=== PATIENT | female | born 1980 | race Caucasian/White ===

== ENCOUNTER 2016-12-04 14:17 | Emergency (ER) | payer OTHER ==
[2016-12-04] MEDS ORDERED: SODIUM CHLORIDE 0.9% 1,000 ML IV ONE (14:24)
[2016-12-04] MEDS ORDERED: KETOROLAC 60 MG/2 ML VIAL IVP STA (17:58)
[2016-12-04] MEDS ORDERED: ONDANSETRON 4 MG/2 ML VIAL IVP STA (17:58)
[2016-12-04] MEDS ORDERED: PROMETHAZINE INJ 12.5 MG in SODIUM CHLORIDE 0.9% 50 ML IV STA (18:02)
[2016-12-04] MEDS ORDERED: AZITHROMYCIN 250 MG TABLET PO STA (18:04)
[2016-12-04] MEDS ORDERED: KETOROLAC 30 MG/ML VIAL ONE (18:10)
[2016-12-04] MEDS ORDERED: PROMETHAZINE 25 MG/1 ML VIAL ONE (18:11)
[2016-12-04] MEDS ORDERED: AZITHROMYCIN 250 MG TABLET PO ONE (18:11)
== END 2016-12-04 18:57 | disposition home or self-care (01) ==
DX: A04.9 Bacterial intestinal infection, unspecified (principal); J45.909 Unspecified asthma, uncomplicated; M79.7 Fibromyalgia; K58.9 Irritable bowel syndrome, unspecified
CPT/HCPCS: 36415; 80053; 82270; 83630; 83690; 84703; 85025; 87045; 87046; 87493; 96361; 96365; 96375; 99283; 99284; A9270

== ENCOUNTER 2017-04-22 06:26 | Emergency (ER) | payer OTHER ==
[2017-04-22] MEDS ORDERED: KETOROLAC 60 MG/2 ML VIAL IVP STA (07:16)
[2017-04-22] MEDS ORDERED: ONDANSETRON 4 MG/2 ML VIAL IVP STA (07:16)
[2017-04-22] MEDS ORDERED: ONDANSETRON 4 MG/2 ML VIAL ONE (07:19)
[2017-04-22] MEDS ORDERED: KETOROLAC 30 MG/ML VIAL ONE (07:19)
--- NOTE | 2017-04-22 07:21 | ED Physician Documentation ---
PD HPI ABD PAIN - Stated complaint Stated Complaint: R FLANK PX - Chief complaint Chief Complaint: Abd Pain - History obtained from History obtained from: Patient - History of Present Illness Timing - onset: Enter time (1400), Yesterday Timing - duration: Days (1) Timing - details: Abrupt onset, Still present Quality: Sharp Location: RLQ Radiation: Right flank Improved by: Other (nothing) Worsened by: Eating, Palpation Associated symptoms: Nausea, Vomiting. No: Fever, Diarrhea, Constipation Similar symptoms before: Has not had sx before Recently seen: Not recently seen - Additional information Additional information: 36 y/o female with a history of IBS, fibromyalgia and asthma has developed right flank pain with radiation to the right lower quadrant that has spikes of pain that are intolerable. She vomited once and at first thought this was her IBS but she has never had her IBS be this bad. Review of Systems Constitutional: reports: Fever Eyes: denies: Decreased vision Ears: denies: Ear pain Nose: denies: Congestion Throat: denies: Sore throat Cardiac: denies: Chest pain / pressure, Palpitations Respiratory: denies: Dyspnea, Cough GI: reports: Abdominal Pain, Nausea, Vomiting. denies: Constipation, Diarrhea : denies: Dysuria, Frequency Skin: denies: Rash Musculoskeletal: reports: Back pain. 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 - Present Medications Home Medications: Ambulatory Orders Medication Instructions Recorded Confirmed Cholecalciferol (Vitamin D3) 2,000 unit DAILY 12/04/16 04/22/17 [Vitamin D3] Cyclobenzaprine HCl 30 mg QPM 12/04/16 04/22/17 Esomeprazole Magnesium [Nexium] 20 mg DAILY 12/04/16 04/22/17 Etodolac [Lodine] 400 mg BID 12/04/16 04/22/17 Loratadine [Claritin] 10 mg DAILY 12/04/16 04/22/17 Magnesium 500 mg ORAL DAILY 12/04/16 04/22/17 Milnacipran HCl [Savella] 50 mg BID 12/04/16 04/22/17 Ondansetron HCl [Zofran] 8 mg ORAL .FREQ PRN 12/04/16 04/22/17 Sumatriptan Succinate 100 mg ORAL .FREQ PRN 12/04/16 04/22/17 Topiramate 25 mg ORAL BID 12/04/16 04/22/17 buPROPion [Wellbutrin Sr] 300 mg ORAL DAILY 12/04/16 04/22/17 cloNIDine [Catapres] 0.2 mg ORAL QPM 12/04/16 04/22/17 - Allergies Allergies/Adverse Reactions: Allergies Allergy/AdvReac Type Severity Reaction Status Date / Time Penicillins Allergy Hives Verified 04/22/17 06:32 - Social History Does the pt smoke?: No Smoking Status: Never smoker Does the pt drink ETOH?: No Does the pt have substance abuse?: No - Immunizations Immunizations are current?: Yes - POLST Patient has POLST: No PD ED PE NORMAL - Vitals Vital signs reviewed: Yes (tachy and hypertensive ) - General General: Alert and oriented X 3, Well developed/nourished, Other (The patient appears to be in 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 ) - HEENT HEENT: Atraumatic, PERRL, EOMI - Neck Neck: Supple, no meningeal sign - Cardiac Cardiac: RRR, No murmur - Respiratory Respiratory: No respiratory distress, Clear bilaterally - Abdomen Abdomen: Soft, Other (mild general tenderness to the right side without garding or rebound tenderness. ) - Back Back: No CVA TTP, No spinal TTP - Derm Derm: Normal color, No rash - Extremities Extremities: No deformity, No edema - Neuro Neuro: No motor deficit, No sensory deficit, Normal speech - Psych Psych: Normal mood Results - Vitals Vitals: Vital Signs - 24 hr 04/22/17 04/22/17 04/22/17 06:30 07:32 08:18 Temperature 36.2 C L Heart Rate 116 H 83 Respiratory 16 17 16 Rate Blood Pressure 132/94 H 125/92 H O2 Saturation 98 100 04/22/17 10:40 Temperature Heart Rate 71 Respiratory 12 Rate Blood Pressure 132/95 H O2 Saturation 100 Oxygen O2 Source Room air - Labs Labs: Laboratory Tests 04/22/17 04/22/17 04/22/17 07:20 07:25 07:25 WBC 4.7 L RBC 5.14 Hgb 15.0 Hct 44.8 MCV 87.1 MCH 29.1 MCHC 33.4 RDW 13.4 Plt Count 311 MPV 6.8 L Neut # 2.6 Lymph # 1.4 L Tensas # 0.5 Eos # 0.2 Baso # 0.1 Absolute Nucleated RBC 0.00 Nucleated RBCs 0.0 Sodium 138 Potassium 3.9 Chloride 105 Carbon Dioxide 25 Anion Gap 8.0 BUN 20 Creatinine 0.9 Estimated GFR (MDRD) 72 L Glucose 97 Calcium 9.2 Total Bilirubin 0.9 AST 24 ALT 24 Alkaline Phosphatase 66 Total Protein 7.5 Albumin 4.3 Globulin 3.2 Albumin/Globulin Ratio 1.3 Lipase 27 Urine Color YELLOW Urine Clarity CLEAR Urine pH 8.0 H Ur Specific [place] 1.010 Urine Protein NEGATIVE Urine Glucose (UA) NEGATIVE Urine Ketones NEGATIVE Urine Occult Blood MODERATE H Urine Nitrite NEGATIVE Urine Bilirubin NEGATIVE Urine Urobilinogen 0.2 (NORMAL) Ur Leukocyte Esterase NEGATIVE Urine RBC 0-5 Urine WBC 0-3 Ur Squamous Epith Cells FEW Squamous Urine Bacteria Few Ur Microscopic Review INDICATED Urine Culture Comments NOT INDICATED Urine HCG, Qual NEGATIVE - Rads (name of study) CT ab/pel without Radiology: Prelim report reviewed (Impression: 1. No evidence of urinary tract stones or obstruction.2. Etiology of right flank pain not identified.), EMP read indepedently, See rad report Procedures - Bedside sono Bedside sono by EMP: with the use of bedside ultrasound the right kidney is imaged and it is sonographically non-tender and there is questionable hydro. PD MEDICAL DECISION MAKING - ED course Complexity details: reviewed results, re-evaluated patient, considered differential, d/w patient ED course: 36 y/o female with right flank pain has a history consistent with a kidney stone and an IV is begun and she is given IV toradal and zofran and a CT is ordered. She has some relief with the toradal but the scan shows no stone. The gallbladder is imaged with ultrasound and that is without findings as well. 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 Narcotics are avoided and I have recommended she take some MOM. Departure - Departure Disposition: 01 Home, Self Care Clinical Impression: Constipation Qualifiers: Constipation type: slow transit constipation Qualified Code(s): K59.01 - Slow transit constipation Condition: Stable Instructions: ED Constipation Follow-Up: Deo Ayoub DO [Primary Care Provider] - Discharge Date/Time: 04/22/17 10:48
[2017-04-22 07:36] LABS: BASOPHILS # (AUTO) 0.1 10^3/uL (0.0-0.1); BASOPHILS % (AUTO) 1.1 %; EOSINOPHILS # (AUTO) 0.2 10^3/uL (0.0-0.7); EOSINOPHILS % (AUTO) 3.3 %; HCT - HEMATOCRIT 44.8 % (37.0-47.0); LYMPHOCYTES # (AUTO) 1.4 10^3/uL (1.5-3.5); LYMPHOCYTES % (AUTO) 29.8 %; MEAN CORPUSCULAR HEMOGLOBIN 29.1 pg (27.0-31.0); MEAN CORPUSCULAR HGB CONC 33.4 g/dL (32.0-36.0); MEAN CORPUSCULAR VOLUME 87.1 fL (81.0-99.0); MEAN PLATELET VOLUME 6.8 fL (7.9-10.8); MONOCYTES # (AUTO) 0.5 10^3/uL (0.0-1.0); MONOCYTES % (AUTO) 10.2 %; NEUTROPHILS # (AUTO) 2.6 10^3/uL (1.5-6.6); NEUTROPHILS % (AUTO) 55.6 %; RED BLOOD COUNT 5.14 10^6/uL (4.20-5.40); RED CELL DISTRIBUTION WIDTH 13.4 % (12.0-15.0); UNCORRECTED WHITE BLOOD COUNT 4.7 x10^3/uL; WHITE BLOOD COUNT 4.7 x10^3/uL (4.8-10.8)
[2017-04-22 07:43] LABS: BILIRUBIN,URINE NEGATIVE (NEGATIVE); HCG UR QUAL NEGATIVE; UA w/ MICROSCOPIC CHARGE YES
[2017-04-22 07:45] LABS: UR CULTURE IF IND NOT INDICATED; WBC,URINE 0-3 /HPF (0-5)
[2017-04-22 07:49] LABS: ALBUMIN/GLOBULIN RATIO 1.3 (1.0-2.2); BILIRUBIN,TOTAL 0.9 mg/dL (0.2-1.0); CALCIUM 9.2 mg/dL (8.5-10.3); CREATININE 0.9 mg/dL (0.4-1.0); POTASSIUM 3.9 mmol/L (3.5-5.0); TOTAL PROTEIN 7.5 g/dL (6.7-8.2)
--- NOTE | 2017-04-22 08:41 | CT Preliminary Report ---
Exam: CT Abdomen/Pelvis W/O IMPRESSION: 1. No evidence of urinary tract stones or obstruction. 2. Etiology for right flank pain not identified. [facility] SITE ID: [id number]
--- NOTE | 2017-04-22 08:44 | CT Report ---
EXAM: CT ABDOMEN AND PELVIS (CT KUB) EXAM DATE: 04/22/2017 08:07 AM. CLINICAL HISTORY: R flank pain . COMPARISONS: None. TECHNIQUE: Routine axial helical CT imaging was performed through the abdomen and pelvis without IV c ontrast. Reconstructions: Coronal and sagittal. In accordance with CT protocol optimization, one or more of the following dose reduction techniques w ere utilized for this exam: automated exposure control, adjustment of mA and/or KV based on patient s ize, or use of iterative reconstructive technique. FINDINGS: Lung Bases: Unremarkable. Right Kidney/Ureter: No stones, hydronephrosis, or hydroureter. No perinephric fat stranding. Left Kidney/Ureter: No stones, hydronephrosis, or hydroureter. No perinephric fat stranding. Other Solid Organs: Noncontrast images of the solid organs are grossly unremarkable. Gallbladder/Bile Ducts: Unremarkable. Peritoneal Cavity: No free fluid, free air or zac adenopathy. Bowel is grossly unremarkable. Pelvic Organs: No bladder stones. No free fluid. Surgical clips adjacent to the left adnexa may repre sent tubal ligation clips. No clips are seen in the region of the right adnexa. Vasculature: Unremarkable. Other: None. IMPRESSION: 1. No evidence of urinary tract stones or obstruction. 2. Etiology for right flank pain not identified. [facility] Referring Provider Line: [phone] SITE ID: [id number]
--- NOTE | 2017-04-22 10:09 | Ultrasound Preliminary Report ---
Exam: US Abdomen Limited IMPRESSION: 1. Normal ultrasound appearance of the gallbladder and bile ducts. 2. Normal appearance of right kidney without hydronephrosis. [facility] SITE ID: [id number]
--- NOTE | 2017-04-22 10:12 | Ultrasound Report ---
EXAM: ABDOMEN ULTRASOUND LIMITED, RUQ EXAM DATE: 04/22/2017 09:47 AM. CLINICAL HISTORY: RUQ pain . COMPARISON: CT 04/22/2017. TECHNIQUE: Real-time scanning was performed with static images obtained. FINDINGS: Liver: Heterogenous echotexture. Evaluation limited by body habitus. No focal hepatic lesion. 14.4 cm . Main portal vein flow: Hepatopetal. Gallbladder: Normal. No stones, wall thickening, or sonographic Marie's sign. Biliary System: CBD measures 5.5 mm. Right kidney measures 11.2 cm in length without hydronephrosis. No shadowing renal stones. Other: None. IMPRESSION: 1. Normal ultrasound appearance of the gallbladder and bile ducts. 2. Normal appearance of right kidney without hydronephrosis. [facility] Referring Provider Line: [phone] SITE ID: [id number]
[2017-04-22 10:40] VITALS: BP 132/95
== END 2017-04-22 10:48 | disposition home or self-care (01) ==
LOC: ED 06:26
DX: K59.01 Slow transit constipation (principal); K58.9 Irritable bowel syndrome, unspecified; M79.7 Fibromyalgia; J45.909 Unspecified asthma, uncomplicated
CPT/HCPCS: 36415; 74176; 76705; 80053; 81001; 81003; 81025; 83690; 85025; 87086; 96374; 96375; 99284

== ENCOUNTER 2017-09-10 11:17 | Emergency (ER) | payer OTHER ==
--- NOTE | 2017-09-10 11:38 | ED Physician Documentation ---
PD HPI HEADACHE - Stated complaint Stated Complaint: MIGRAINE,BLURRY VISION, PRESSURE L EYE - Chief complaint Chief Complaint: Neuro - History obtained from History obtained from: Patient - History of Present Illness Timing - onset: How many days ago (3) Timing - onset during: Light activity Timing - duration: Days (3) Timing - details: Gradual onset, Still present Worst headache ever?: No: Worst headache ever? Location: Front, Left Quality: Throbbing, Aching Associated symptoms: Nausea, Vomiting, Eye pain, Vision changes (some blurriness left eye today). No: Fever, Stiff neck, Weakness, Numbness Improved by: Rest, Dark room, Meds (some improved with Imitrex for short time, then back again, despite repeat doses as Rx.) Worsened by: Light, Noise Contributing factors: No: Hypertension, Recent illness, Trauma Similar symptoms before: Diagnosis (migraines regularly, usually controlled with Botox and Topomax, and relieved with Imitrex and Zofran most of the time. Last Botox was July and gets them every 3 months.) Recently seen: Not recently seen Review of Systems Constitutional: denies: Fever, Chills Eyes: reports: Decreased vision (blurry left eye, side of headache), Photophobia Nose: denies: Rhinorrhea / runny nose, Congestion Throat: denies: Sore throat Respiratory: denies: Cough GI: reports: Nausea, Vomiting. 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 - Present Medications Home Medications: Ambulatory Orders Medication Instructions Recorded Confirmed Cholecalciferol (Vitamin D3) 2,000 unit DAILY 12/04/16 04/22/17 [Vitamin D3] Etodolac [Lodine] 400 mg ORAL BID 12/04/16 09/10/17 Loratadine [Claritin] 10 mg ORAL DAILY 12/04/16 09/10/17 Magnesium 500 mg ORAL DAILY 12/04/16 09/10/17 Milnacipran HCl [Savella] 50 mg ORAL BID 12/04/16 09/10/17 Ondansetron HCl [Zofran] 8 mg ORAL .FREQ PRN 12/04/16 09/10/17 SUMAtriptan succinate [Sumatriptan 100 mg ORAL .FREQ PRN 12/04/16 09/10/17 Succinate] Topiramate 25 mg ORAL BID 12/04/16 09/10/17 buPROPion [Wellbutrin Sr] 300 mg ORAL DAILY 12/04/16 09/10/17 Dexamethasone [Decadron] 4 mg PO DAILY #5 tablet 09/10/17 Guanfacine HCl 1 mg PO DAILY 09/10/17 09/10/17 HYDROcod/ACETAM 5/325 [[place] 5/325] 1 tab PO Q6H PRN #15 tablet 09/10/17 Methylphenidate HCl 54 mg PO DAILY 09/10/17 09/10/17 [Methylphenidate ER] Minocycline HCl 100 mg PO DAILY 09/10/17 09/10/17 Omeprazole 20 mg PO DAILY 09/10/17 09/10/17 Promethazine [Phenergan] 25 - 50 mg PO Q6H PRN #30 tab 09/10/17 - Allergies Allergies/Adverse Reactions: Allergies Allergy/AdvReac Type Severity Reaction Status Date / Time Penicillins Allergy Hives Verified 04/22/17 06:32 - Social History Does the pt smoke?: No Smoking Status: Never smoker Does the pt drink ETOH?: Yes Does the pt have substance abuse?: No - Immunizations Immunizations are current?: Yes - POLST Patient has POLST: No PD ED PE NORMAL - Vitals Vital signs reviewed: Yes - General General: Alert and oriented X 3, Well developed/nourished, Other (uncomfortable and sensitive to light and noise. ) - HEENT HEENT: PERRL (light sensitive), EOMI, Pharynx benign - Neck Neck: Supple, no meningeal sign, No adenopathy - Cardiac Cardiac: RRR, No murmur - Respiratory Respiratory: Clear bilaterally - Abdomen Abdomen: Soft, Non tender - Derm Derm: Normal color, Warm and dry - Extremities Extremities: No deformity, No tenderness to palpate, No edema, No calf tenderness / cord - Neuro Neuro: Alert and oriented X 3, model maker scale 2-12 intact, No motor deficit, No sensory deficit, Normal speech Results - Vitals Vitals: Vital Signs - 24 hr 09/10/17 09/10/17 09/10/17 11:21 12:40 12:51 Temperature 36.1 C L 36.4 C L Heart Rate 86 89 Respiratory 18 16 Rate Blood Pressure 134/97 H 126/87 H O2 Saturation 100 100 09/10/17 09/10/17 13:58 14:46 Temperature 35.5 C L Heart Rate 86 Respiratory 16 Rate Blood Pressure 121/82 H O2 Saturation 100 Oxygen O2 Source Room air PD MEDICAL DECISION MAKING - ED course Complexity details: re-evaluated patient (improved enough after IV meds mainly antimigraine but also some pain meds. Given steroids for status migraine. ), considered differential, d/w patient Departure - Departure Disposition: 01 Home, Self Care Clinical Impression: Migraine Qualifiers: Migraine type: with aura Status migrainosus presence: with status migrainosus Intractability: not intractable Qualified Code(s): G43.101 - Migraine with aura , not intractable, with status migrainosus Condition: Stable Record reviewed to determine appropriate education?: Yes Instructions: ED Headache Migraine Follow-Up: JAYDEN WALLIS [Primary Care Provider] - Prescriptions: Dexamethasone [Decadron] 4 mg PO DAILY #5 tablet HYDROcod/ACETAM 5/325 [[place] 5/325] 1 tab PO Q6H PRN #15 tablet PRN Reason: Pain Promethazine [Phenergan] 25 - 50 mg PO Q6H PRN #30 tab PRN Reason: Nausea / Vomiting Comments: Continue usual medications. Drink lots of fluids. Rest today. If you have persisting headache later in into tomorrow, then continue Decadron steroid daily for several more days. At promethazine for nausea as needed and this can also help improve migraine. This could be used in combination with your Imitrex for subsequent migraines as well. Add Tylenol or hydrocodone if needed for residual headache. Recheck if not completely resolved over 1-2 days. Return sooner or check with your neurologist if worsening again. Discharge Date/Time: 09/10/17 14:50
[2017-09-10] MEDS ORDERED: KETOROLAC 30 MG/ML VIAL IVP STA (12:13)
[2017-09-10] MEDS ORDERED: DEXAMETHASONE 10 MG/ML VIAL IVP STA (12:13)
[2017-09-10] MEDS ORDERED: SODIUM CHLORIDE 0.9% 1,000 ML IV ONE (12:13)
[2017-09-10] MEDS ORDERED: METOCLOPRAMIDE 10 MG/2 ML VIAL IVP STA (12:13)
[2017-09-10] MEDS ORDERED: diphenhydrAMINE INJ 50 MG/ML VIAL IVP STA (12:13)
[2017-09-10] MEDS ORDERED: HYDROmorphone 1 MG/ML SYRINGE IVP STA ×2 (12:13→13:31)
[2017-09-10] MEDS ORDERED: METOCLOPRAMIDE 10 MG/2 ML VIAL ONE (12:31)
[2017-09-10] MEDS ORDERED: KETOROLAC 30 MG/ML VIAL ONE (12:32)
[2017-09-10] MEDS ORDERED: HYDROmorphone 1 MG/ML SYRINGE ONE ×2 (12:32→13:45)
[2017-09-10] MEDS ORDERED: DEXAMETHASONE 10 MG/ML VIAL ONE (12:32)
[2017-09-10] MEDS ORDERED: diphenhydrAMINE INJ 50 MG/ML VIAL ONE (12:32)
[2017-09-10 13:58] VITALS: BP 121/82
== END 2017-09-10 14:50 | disposition home or self-care (01) ==
LOC: ED 11:17
DX: G43.101 Migraine with aura, not intractable, with status migrainosus (principal)
CPT/HCPCS: 96361; 96374; 96375; 96376; 99284; J1170

== ENCOUNTER 2018-01-10 21:57 | Emergency (ER) | payer OTHER ==
--- NOTE | 2018-01-10 22:26 | ED Physician Documentation ---
History of Present Illness - Stated complaint Stated Complaint: SORE THROAT - Chief complaint Chief Complaint: Heent - History obtained from History obtained from: Patient - History of Present Illness Timing: Other (1 day of scratchy sore throat with mild cough) Review of Systems Constitutional: denies: Fever, Chills Ears: denies: Ear pain Nose: denies: Rhinorrhea / runny nose, Congestion Throat: reports: Sore throat Respiratory: reports: Cough PD PAST MEDICAL HISTORY - Past Medical History Respiratory: Asthma Neuro: Headache/migraine Psych: ADD/ADHD Musculoskeletal: Fibromyalgia - Past Surgical History 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, 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 - Present Medications Home Medications: Ambulatory Orders Medication Instructions Recorded Confirmed Cholecalciferol (Vitamin D3) 2,000 unit DAILY 12/04/16 04/22/17 [Vitamin D3] Etodolac [Lodine] 400 mg ORAL BID 12/04/16 09/10/17 Loratadine [Claritin] 10 mg ORAL DAILY 12/04/16 09/10/17 Magnesium 500 mg ORAL DAILY 12/04/16 09/10/17 Milnacipran HCl [Savella] 50 mg ORAL BID 12/04/16 09/10/17 Ondansetron HCl [Zofran] 8 mg ORAL .FREQ PRN 12/04/16 09/10/17 SUMAtriptan succinate [Sumatriptan 100 mg ORAL .FREQ PRN 12/04/16 09/10/17 Succinate] Topiramate 25 mg ORAL BID 12/04/16 09/10/17 buPROPion [Wellbutrin Sr] 300 mg ORAL DAILY 12/04/16 09/10/17 Dexamethasone [Decadron] 4 mg PO DAILY #5 tablet 09/10/17 Guanfacine HCl 1 mg PO DAILY 09/10/17 09/10/17 HYDROcod/ACETAM 5/325 [[place] 5/325] 1 tab PO Q6H PRN #15 tablet 09/10/17 Methylphenidate HCl 54 mg PO DAILY 09/10/17 09/10/17 [Methylphenidate ER] Minocycline HCl 100 mg PO DAILY 09/10/17 09/10/17 Omeprazole 20 mg PO DAILY 09/10/17 09/10/17 Promethazine [Phenergan] 25 - 50 mg PO Q6H PRN #30 tab 09/10/17 - Allergies Allergies/Adverse Reactions: Allergies Allergy/AdvReac Type Severity Reaction Status Date / Time Penicillins Allergy Hives Verified 01/10/18 22:06 - Social History Does the pt smoke?: No Smoking Status: Never smoker Does the pt drink ETOH?: Yes Does the pt have substance abuse?: No - Immunizations Immunizations are current?: Yes - POLST Patient has POLST: No PD ED PE NORMAL - Vitals Vital signs reviewed: Yes - General General: Alert and oriented X 3, No acute distress - HEENT HEENT: PERRL, EOMI, Ears normal, Moist mucous membranes, Pharynx benign - Neck Neck: Supple, no meningeal sign, No bony TTP - Neuro Neuro: Alert and oriented X 3, Normal speech Results - Vitals Vitals: Vital Signs - 24 hr 01/10/18 01/10/18 22:00 22:26 Temperature 36.9 C Heart Rate 133 H 133 H Respiratory 18 Rate Blood Pressure 143/103 H 134/95 H O2 Saturation 98 Oxygen O2 Source Room air - EKG (time done) 2235 Rate: Rate (enter#) (123) Rhythm: Sinus tachycardia [place]: Normal Intervals: Normal [place] QRS: Normal Ischemia: Normal ST segments Computer interpretation: Agree with computer - Labs Labs: Laboratory Tests 01/10/18 22:05 Group A Strep Rapid Negative PD MEDICAL DECISION MAKING - ED course ED course: 37-year-old woman with what seems like uncomplicated viral pharyngitis clinically. She is fairly tachycardic, could be explained by polypharmacy. She does not look ill and she is not hypotensive.. EKG shows simple sinus tachycardia. Departure - Departure Disposition: 01 Home, Self Care Clinical Impression: Sore throat Condition: Good Record reviewed to determine appropriate education?: Yes Instructions: ED Pharyngitis Viral Report Pending Comments: We will do a throat culture, if it comes positive for bacterial pathogen we will call you in a couple of days. Ibuprofen as needed for the pain and drink plenty of fluids.
[2018-01-10 22:49] VITALS: BP 140/94
== END 2018-01-10 22:50 | disposition home or self-care (01) ==
LOC: ED 21:57
DX: J02.9 Acute pharyngitis, unspecified (principal); J45.909 Unspecified asthma, uncomplicated; M79.7 Fibromyalgia; R00.0 Tachycardia, unspecified
CPT/HCPCS: 87070; 87430; 93005; 99283

== ENCOUNTER 2018-01-11 14:13 | Emergency (ER) | payer OTHER ==
[2018-01-11 14:21] VITALS: BP 134/89
[2018-01-11] MEDS ORDERED: SODIUM CHLORIDE 0.9% 1,000 ML IV ONE (14:49)
--- NOTE | 2018-01-11 14:51 | ED Physician Documentation ---
PD HPI CHEST PAIN - Stated complaint Stated Complaint: CHEST PAIN, HIGH PULSE - Chief complaint Chief Complaint: Cardiac - History obtained from History obtained from: Patient - History of Present Illness Timing - onset: Other (She was seen yesterday for sore throat, strep was negative, she was noted to be tachycardic and I asked her to watch this at home and call me today to see what her heart rate was. She has had variability, but she still running high the lowest was 108. Now she has a cough which is Nonproductive and a tactile fever and generally feels worse than yesterday. She does have chest pain but it is really only with coughing.) - Additional information Additional information: She did not take her Ritalin today. Review of Systems Constitutional: reports: Fever, Chills, Fatigue Nose: denies: Rhinorrhea / runny nose Throat: reports: Sore throat Cardiac: reports: Chest pain / pressure. denies: Palpitations Respiratory: reports: Cough. 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 - Present Medications Home Medications: Ambulatory Orders Medication Instructions Recorded Confirmed Cholecalciferol (Vitamin D3) 2,000 unit DAILY 12/04/16 04/22/17 [Vitamin D3] Etodolac [Lodine] 400 mg ORAL BID 12/04/16 09/10/17 Loratadine [Claritin] 10 mg ORAL DAILY 12/04/16 09/10/17 Magnesium 500 mg ORAL DAILY 12/04/16 09/10/17 Milnacipran HCl [Savella] 50 mg ORAL BID 12/04/16 09/10/17 Ondansetron HCl [Zofran] 8 mg ORAL .FREQ PRN 12/04/16 09/10/17 SUMAtriptan succinate [Sumatriptan 100 mg ORAL .FREQ PRN 12/04/16 09/10/17 Succinate] Topiramate 25 mg ORAL BID 12/04/16 09/10/17 buPROPion [Wellbutrin Sr] 300 mg ORAL DAILY 12/04/16 09/10/17 Dexamethasone [Decadron] 4 mg PO DAILY #5 tablet 09/10/17 Guanfacine HCl 1 mg PO DAILY 09/10/17 09/10/17 HYDROcod/ACETAM 5/325 [[place] 5/325] 1 tab PO Q6H PRN #15 tablet 09/10/17 Methylphenidate HCl 54 mg PO DAILY 09/10/17 09/10/17 [Methylphenidate ER] Minocycline HCl 100 mg PO DAILY 09/10/17 09/10/17 Omeprazole 20 mg PO DAILY 09/10/17 09/10/17 Promethazine [Phenergan] 25 - 50 mg PO Q6H PRN #30 tab 09/10/17 - Allergies Allergies/Adverse Reactions: Allergies Allergy/AdvReac Type Severity Reaction Status Date / Time Penicillins Allergy Hives Verified 01/10/18 22:06 - Social History Does the pt smoke?: No Smoking Status: Never smoker Does the pt drink ETOH?: Yes Does the pt have substance abuse?: No - Immunizations Immunizations are current?: Yes - POLST Patient has POLST: No PD ED PE NORMAL - Vitals Vital signs reviewed: Yes - General General: Alert and oriented X 3, No acute distress - HEENT HEENT: PERRL, EOMI, Other (Red tonsillar pillars) - Neck Neck: Supple, no meningeal sign, No bony TTP - Cardiac Cardiac: RRR, No murmur - Respiratory Respiratory: No respiratory distress, Clear bilaterally - Abdomen Abdomen: Normal bowel sounds, Soft, Non tender - Back Back: No CVA TTP, No spinal TTP - Derm Derm: Normal color, Warm and dry - Extremities Extremities: No edema, No calf tenderness / cord - Neuro Neuro: Alert and oriented X 3, Normal speech - Psych Psych: Normal mood, Normal affect Results - Vitals Vitals: Vital Signs - 24 hr 01/11/18 01/11/18 14:17 17:20 Temperature 36.4 C L Heart Rate 124 H 110 H Respiratory 18 16 Rate Blood Pressure 134/89 H O2 Saturation 99 98 Oxygen O2 Source Room air - EKG (time done) 1418 Rate: Rate (enter#) (112) Rhythm: Sinus tachycardia [place]: Normal Intervals: Normal [place] QRS: Normal Ischemia: Normal ST segments Computer interpretation: Agree with computer - Labs Labs: Laboratory Tests 01/11/18 01/11/18 01/11/18 15:05 15:05 15:05 WBC 8.5 RBC 5.01 Hgb 15.0 Hct 44.6 MCV 89.0 MCH 30.0 MCHC 33.7 RDW 12.2 Plt Count 267 MPV 7.1 L Neut # 6.8 H Lymph # 0.8 L [place] # 0.9 Eos # 0.0 Baso # 0.0 Absolute Nucleated RBC 0.00 Nucleated RBC % 0.0 D-Dimer Sodium 136 Potassium 3.6 Chloride 104 Carbon Dioxide 26 Anion Gap 6.0 BUN 14 Creatinine 0.8 Estimated GFR (MDRD) 82 L Glucose 112 H Lactic Acid Calcium 8.8 Total Bilirubin 0.6 AST 28 ALT 35 Alkaline Phosphatase 64 Troponin I < 0.04 Total Protein 7.1 Albumin 4.2 Globulin 2.9 Albumin/Globulin Ratio 1.4 Lipase 14 L Urine Color Urine Clarity Urine pH Ur Specific [place] Urine Protein Urine Glucose (UA) Urine Ketones Urine Occult Blood Urine Nitrite Urine Bilirubin Urine Urobilinogen Ur Leukocyte Esterase Ur Microscopic Review Urine Culture Comments Urine HCG, Qual Infectious [place] Assay Influenza A (Rapid) Influenza B (Rapid) Influenza Types A,B Ag 01/11/18 01/11/18 01/11/18 15:05 15:05 15:05 WBC RBC Hgb Hct MCV MCH MCHC RDW Plt Count MPV Neut # Lymph # [place] # Eos # Baso # Absolute Nucleated RBC Nucleated RBC % D-Dimer < 200.0 L Sodium Potassium Chloride Carbon Dioxide Anion Gap BUN Creatinine Estimated GFR (MDRD) Glucose Lactic Acid 1.2 Calcium Total Bilirubin AST ALT Alkaline Phosphatase Troponin I Total Protein Albumin Globulin Albumin/Globulin Ratio Lipase Urine Color Urine Clarity Urine pH Ur Specific [place] Urine Protein Urine Glucose (UA) Urine Ketones Urine Occult Blood Urine Nitrite Urine Bilirubin Urine Urobilinogen Ur Leukocyte Esterase Ur Microscopic Review Urine Culture Comments Urine HCG, Qual Infectious [place] Assay NEGATIVE Influenza A (Rapid) Influenza B (Rapid) Influenza Types A,B Ag 01/11/18 01/11/18 16:15 16:46 WBC RBC Hgb Hct MCV MCH MCHC RDW Plt Count MPV Neut # Lymph # [place] # Eos # Baso # Absolute Nucleated RBC Nucleated RBC % D-Dimer Sodium Potassium Chloride Carbon Dioxide Anion Gap BUN Creatinine Estimated GFR (MDRD) Glucose Lactic Acid Calcium Total Bilirubin AST ALT Alkaline Phosphatase Troponin I Total Protein Albumin Globulin Albumin/Globulin Ratio Lipase Urine Color YELLOW Urine Clarity CLEAR Urine pH 6.5 Ur Specific [place] 1.010 Urine Protein NEGATIVE Urine Glucose (UA) NEGATIVE Urine Ketones TRACE Urine Occult Blood TRACE-INTA Urine Nitrite NEGATIVE Urine Bilirubin NEGATIVE Urine Urobilinogen 0.2 (NORMAL) Ur Leukocyte Esterase NEGATIVE Ur Microscopic Review NOT INDICATED Urine Culture Comments NOT INDICATED Urine HCG, Qual NEGATIVE Infectious [place] Assay Influenza A (Rapid) Negative Influenza B (Rapid) POSITIVE H Influenza Types A,B Ag + H - Rads (name of study) 2v chest Radiology: EMP read contemporaneously (Normal) PD MEDICAL DECISION MAKING - ED course ED course: 37-year-old woman with viral syndrome presents with persistent tachycardia and returns at my behest for workup for same. After IV fluids her heart rate was in the 90s. The only relevant finding was flu B positivity. She is young and healthy, we discussed Tamiflu but the side effects probably outweigh the unlikely benefit. Departure - Departure Disposition: 01 Home, Self Care Clinical Impression: Sore throat, Influenza B, Sinus tachycardia Condition: Good Record reviewed to determine appropriate education?: Yes Instructions: ED Flu Comments: Drink plenty of fluids, ibuprofen or Tylenol as needed for pain and aches. Take it easy for the next few days, no work for at least a few days. Forms: Activity restrictions Discharge Date/Time: 01/11/18 17:21
[2018-01-11 15:19] LABS: BASOPHILS % (AUTO) 0.4 %; LYMPHOCYTES # (AUTO) 0.8 10^3/uL (1.5-3.5); MEAN CORPUSCULAR HGB CONC 33.7 g/dL (32.0-36.0); MEAN PLATELET VOLUME 7.1 fL (7.9-10.8); MONOCYTES # (AUTO) 0.9 10^3/uL (0.0-1.0); MONOCYTES % (AUTO) 10.8 %; NEUTROPHILS # (AUTO) 6.8 10^3/uL (1.5-6.6); NEUTROPHILS % (AUTO) 79.8 %; PLT - PLATELET COUNT 267 10^3/uL (130-450); RED BLOOD COUNT 5.01 10^6/uL (4.20-5.40); RED CELL DISTRIBUTION WIDTH 12.2 % (12.0-15.0); WHITE BLOOD COUNT 8.5 x10^3/uL (4.8-10.8)
[2018-01-11 15:25] LABS: ALBUMIN 4.2 g/dL (3.2-5.5); ALBUMIN/GLOBULIN RATIO 1.4 (1.0-2.2); BILIRUBIN,TOTAL 0.6 mg/dL (0.2-1.0); CALCIUM 8.8 mg/dL (8.5-10.3); CREATININE 0.8 mg/dL (0.4-1.0); TOTAL PROTEIN 7.1 g/dL (6.7-8.2)
--- NOTE | 2018-01-11 15:30 | XRAY Preliminary Report ---
Exam: XR CHEST 2 VIEW X-RAY IMPRESSION: 1. No consolidation. [facility] SITE ID: [id number]
--- NOTE | 2018-01-11 15:30 | XRAY Report ---
EXAM: CHEST RADIOGRAPHY EXAM DATE: 01/11/2018 03:03 PM. CLINICAL HISTORY: Cough, fever. COMPARISON: None. TECHNIQUE: 2 views. FINDINGS: Lungs/Pleura: No focal opacities evident. No pleural effusion. No pneumothorax. Normal volumes. Mediastinum: Heart and mediastinal contours are unremarkable. Other: None. IMPRESSION: 1. No consolidation. [facility] Referring Provider Line: [phone] SITE ID: [id number]
[2018-01-11 16:50] LABS: BILIRUBIN,URINE NEGATIVE (NEGATIVE); GLUCOSE, URINE (UA) NEGATIVE (NEGATIVE); KETONES,URINE (UA) TRACE mg/dL (NEGATIVE); LEUKOCYTE ESTERASE, URINE NEGATIVE (NEGATIVE); NITRITE,URINE NEGATIVE (NEGATIVE); OCCULT BLOOD,URINE TRACE-INTA (NEGATIVE); PH,URINE 6.5 PH (5.0-7.5); PROTEIN,URINE NEGATIVE (NEGATIVE); UROBILINOGEN,URINE 0.2 (NORMAL) E.U./dL (NORMAL)
[2018-01-11 16:55] LABS: CLARITY,URINE CLEAR (CLEAR); HCG UR QUAL NEGATIVE
== END 2018-01-11 17:21 | disposition home or self-care (01) ==
LOC: ED 14:13
DX: J10.1 Influenza due to other identified influenza virus with other respiratory manifestations (principal); R00.0 Tachycardia, unspecified; J45.909 Unspecified asthma, uncomplicated; M79.7 Fibromyalgia
CPT/HCPCS: 36415; 71046; 80053; 81001; 81003; 81025; 83605; 83690; 84484; 85025; 85379; 86308; 87086; 87275; 87276; 93005; 96360; 99283

== ENCOUNTER 2018-04-26 07:34 | Emergency (ER) | payer OTHER ==
--- NOTE | 2018-04-26 08:23 | ED Physician Documentation ---
PD HPI NECK PAIN - Stated complaint Stated Complaint: R SIDE NECK PX/STIFFNESS - Chief complaint Chief Complaint: General - History obtained from History obtained from: Patient - History of Present Illness Timing - onset: Today Timing - duration: Hours (awoke with right side of neck to scapular area painful and stiff. No injury. No rash. No fevers.) Timing - details: Abrupt onset, Still present Location: Lower, Right Quality: Pain, Spasm Associated symptoms: No: Fever, Weakness, Numbness Improves with: Rest Worsened by: Movement, Twisting, Palpation Contributing factors: No: Lifting, Twisting Similar symptoms before: Has not had sx before Recently seen: Not recently seen Review of Systems Constitutional: denies: Fever, Chills, Myalgias Nose: denies: Rhinorrhea / runny nose, Congestion Throat: denies: Sore throat Respiratory: denies: Cough GI: denies: Nausea, Vomiting, Diarrhea Skin: denies: Rash Neurologic: denies: Focal weakness, Numbness PD PAST MEDICAL HISTORY - Past Medical History Past Medical History: Yes Respiratory: Asthma Psych: ADD/ADHD Musculoskeletal: Fibromyalgia - Past Surgical History 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, 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 - Present Medications Home Medications: Ambulatory Orders Medication Instructions Recorded Confirmed Cholecalciferol (Vitamin D3) 2,000 unit DAILY 12/04/16 04/26/18 [Vitamin D3] Etodolac [Lodine] 400 mg ORAL BID 12/04/16 04/26/18 Loratadine [Claritin] 10 mg ORAL DAILY 12/04/16 04/26/18 Magnesium 500 mg ORAL DAILY 12/04/16 04/26/18 Milnacipran HCl [Savella] 50 mg ORAL BID 12/04/16 04/26/18 Ondansetron HCl [Zofran] 8 mg ORAL .FREQ PRN 12/04/16 04/26/18 SUMAtriptan succinate [Sumatriptan 100 mg ORAL .FREQ PRN 12/04/16 04/26/18 Succinate] Topiramate 25 mg ORAL BID 12/04/16 04/26/18 buPROPion [Wellbutrin Sr] 300 mg ORAL DAILY 12/04/16 04/26/18 Dexamethasone [Decadron] 4 mg PO DAILY #5 tablet 09/10/17 04/26/18 Guanfacine HCl 1 mg PO DAILY 09/10/17 04/26/18 HYDROcod/ACETAM 5/325 [[place] 5/325] 1 tab PO Q6H PRN #15 tablet 09/10/17 Methylphenidate HCl 54 mg PO DAILY 09/10/17 04/26/18 [Methylphenidate ER] Minocycline HCl 100 mg PO DAILY 09/10/17 04/26/18 Omeprazole 20 mg PO DAILY 09/10/17 04/26/18 Promethazine [Phenergan] 25 - 50 mg PO Q6H PRN #30 tab 09/10/17 04/26/18 HYDROcod/ACETAM 5/325 [[place] 5/325] 1 tab PO Q6H PRN #12 tablet 04/26/18 Lisdexamfetamine Dimesylate 10 mg PO DAILY 04/26/18 04/26/18 [Vyvanse] Methocarbamol [Robaxin] 500 mg PO Q6H PRN #25 tablet 04/26/18 - Allergies Allergies/Adverse Reactions: Allergies Allergy/AdvReac Type Severity Reaction Status Date / Time Penicillins Allergy Hives Verified 01/10/18 22:06 - Social History Does the pt smoke?: No Smoking Status: Never smoker Does the pt drink ETOH?: Yes Does the pt have substance abuse?: No - Immunizations Immunizations are current?: Yes - POLST Patient has POLST: No PD ED PE NORMAL - Vitals Vital signs reviewed: Yes - General General: Alert and oriented X 3, Well developed/nourished, Other (holding head stiffly due to neck muscle pain. Seems uncomfortable. ) - Neck Neck: No bony TTP, No adenopathy, Other (right lateral trapezius muscle at lower neck and to suprascapular area is tender with 2 points of most tenderness with muscle spasm in those areas. ) - Cardiac Cardiac: RRR, No murmur - Respiratory Respiratory: Clear bilaterally - Back Back: No spinal TTP - Derm Derm: Normal color, Warm and dry, No rash - Neuro Neuro: Alert and oriented X 3, No motor deficit, No sensory deficit, Normal speech Results - Vitals Vitals: Vital Signs - 24 hr 04/26/18 09:28 Heart Rate 70 Respiratory 14 Rate Blood Pressure 115/88 H O2 Saturation 99 Oxygen O2 Source Room air PD MEDICAL DECISION MAKING - ED course Complexity details: considered differential (seems muscular without red flags. Trigger point injection at mid trapezius are on right with Marcaine did improve moderately. ), d/w patient - Sepsis Event Vital Signs: Vital Signs - 24 hr 04/26/18 09:28 Heart Rate 70 Respiratory 14 Rate Blood Pressure 115/88 H O2 Saturation 99 Oxygen O2 Source Room air Departure - Departure Disposition: 01 Home, Self Care Clinical Impression: Muscle spasms of neck Condition: Stable Record reviewed to determine appropriate education?: Yes Instructions: ED Spasm Neck No Injury Follow-Up: Bob Call ARNP [Primary Care Provider] - Prescriptions: HYDROcod/ACETAM 5/325 [[place] 5/325] 1 tab PO Q6H PRN #12 tablet PRN Reason: Pain Methocarbamol [Robaxin] 500 mg PO Q6H PRN #25 tablet PRN Reason: Spasms Comments: Heat and gentle stretching for the shoulder and neck muscles. No heavy lifting or vigorous activity with the arms or shoulders today and tomorrow. Use the ibuprofen you have at home 3 times a day for the next several days. Add Robaxin muscle relaxant for stiffness and spasms. Add Tylenol or hydrocodone if needed for pains. Recheck if not improved over the next few days. Return if other symptoms develop along with it, such as rash, fever, weakness, etc. Discharge Date/Time: 04/26/18 09:40
[2018-04-26] MEDS ORDERED: ACETAMINOPHEN 325 MG TABLET PO STA (08:33)
[2018-04-26] MEDS ORDERED: oxyCOD/ACETAMIN 5 MG/325 MG TABLET PO STA (08:33)
[2018-04-26] MEDS ORDERED: METHOCARBAMOL 500 MG TABLET PO STA (08:33)
[2018-04-26] MEDS ORDERED: KETOROLAC 30 MG/ML VIAL IM STA (08:34)
[2018-04-26 09:29] VITALS: BP 115/88
== END 2018-04-26 09:40 | disposition home or self-care (01) ==
LOC: ED 07:34
DX: M62.838 Other muscle spasm (principal)
CPT/HCPCS: 96374; 99283; A9270

== ENCOUNTER 2018-06-19 12:53 | Emergency (ER) | payer OTHER ==
[2018-06-19] MEDS ORDERED: MAG HYDROX/AL HYDROX/SIMETH 30 ML UDC PO STA (13:21)
[2018-06-19] MEDS ORDERED: PHENobarb/HYOSCY/ATROPINE/SCOP 5 ML UDC PO STA (13:22)
[2018-06-19] MEDS ORDERED: LIDOCAINE VISCOUS 2% 15 ML UDC MM STA (13:22)
--- NOTE | 2018-06-19 13:25 | ED Physician Documentation ---
PD HPI CHEST PAIN - Stated complaint Stated Complaint: CHEST PX - Chief complaint Chief Complaint: Cardiac - History obtained from History obtained from: Patient - History of Present Illness Timing - onset: How many weeks ago (6) Timing - details: Intermittant Quality: Pain Location: Substernal Worsened by: Inspiration Associated symptoms: Nausea Similar symptoms before: Diagnosis (History of gastroesophageal reflux, but this feels different.) - Additional information Additional information: The patient is a 37-year-old female who presents with substernal chest pain that she has been experiencing intermittently for the past 6 weeks, but it is worse today. It is worse with inspiratory effort. She reports associated nausea and slight shortness of breath, without vomiting or diaphoresis. She is sometimes woken at night with symptoms and with "heart racing, up to 99. She has a history of gastroesophageal reflux, but states this feels different. She has been seen by her primary physician who she states is considering referring her to a sole edge inker machine. She quit smoking cigarettes about 2 years ago. She has no history of hypertension, diabetes, or hyperlipidemia. Her grandmother had early onset coronary artery disease, and had 2 coronary stents placed before the age of 60. Review of Systems Constitutional: denies: Fever Ears: denies: Tinnitus/ringing Nose: denies: Congestion Throat: denies: Sore throat Cardiac: reports: Chest pain / pressure, Palpitations Respiratory: denies: Dyspnea, Cough GI: reports: Nausea. 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 - Present Medications Home Medications: Ambulatory Orders Medication Instructions Recorded Confirmed Cholecalciferol (Vitamin D3) 2,000 unit DAILY 12/04/16 04/26/18 [Vitamin D3] Etodolac [Lodine] 400 mg ORAL BID 12/04/16 04/26/18 Loratadine [Claritin] 10 mg ORAL DAILY 12/04/16 04/26/18 Magnesium 500 mg ORAL DAILY 12/04/16 04/26/18 Milnacipran HCl [[place]] 50 mg ORAL BID 12/04/16 04/26/18 SUMAtriptan succinate [Sumatriptan 100 mg ORAL .FREQ PRN 12/04/16 04/26/18 Succinate] Topiramate 25 mg ORAL BID 12/04/16 04/26/18 buPROPion [Wellbutrin Sr] 300 mg ORAL DAILY 12/04/16 04/26/18 Guanfacine HCl 1 mg PO DAILY 09/10/17 04/26/18 Minocycline HCl 100 mg PO DAILY 09/10/17 04/26/18 Omeprazole 20 mg PO DAILY 09/10/17 04/26/18 Promethazine [Phenergan] 25 - 50 mg PO Q6H PRN #30 tab 09/10/17 04/26/18 Lisdexamfetamine Dimesylate 10 mg PO DAILY 04/26/18 04/26/18 [Vyvanse] Metoprolol Succinate [Toprol Xl] 06/19/18 - Allergies Allergies/Adverse Reactions: Allergies Allergy/AdvReac Type Severity Reaction Status Date / Time Penicillins Allergy Hives Verified 06/19/18 13:02 - Social History Does the pt smoke?: No Smoking Status: Never smoker Does the pt drink ETOH?: Yes Does the pt have substance abuse?: No - Immunizations Immunizations are current?: Yes - POLST Patient has POLST: No PD ED PE NORMAL - Vitals Vital signs reviewed: Yes (Diastolic hypertension initially.) - General General: Alert and oriented X 3, Well developed/nourished - HEENT HEENT: Atraumatic, Pharynx benign - Neck Neck: No adenopathy, No JVD - Cardiac Cardiac: RRR, No murmur - Respiratory Respiratory: No respiratory distress, Clear bilaterally, Other (No chest wall tenderness to palpation.) - Abdomen Abdomen: Soft, Non tender - Back Back: No CVA TTP - Derm Derm: No rash - Extremities Extremities: No edema, No calf tenderness / cord - Neuro Neuro: Alert and oriented X 3, No motor deficit, Normal speech Results - Vitals Vitals: Vital Signs - 24 hr 06/19/18 12:59 Temperature 97.6 C H Heart Rate 74 Respiratory 20 Rate Blood Pressure 118/97 H O2 Saturation 100 Oxygen O2 Source Room air - EKG (time done) 13:03 Rate: Rate (enter#) Rhythm: NSR [place]: Normal Intervals: Normal [place] QRS: Normal Ischemia: Normal ST segments Computer interpretation: Agree with computer - Rads (name of study) CXR Radiology: Prelim report reviewed, EMP read contemporaneously, See rad report ( Normal 2 view chest radiography.) PD MEDICAL DECISION MAKING - ED course Complexity details: reviewed results, re-evaluated patient, considered differential, d/w patient, d/w family ED course: The patient's presentation is most consistent with gastroesophageal reflux. I doubt cardiac ischemia, and electric cardiogram is normal. There is no clinical evidence to suggest pneumonia, pneumothorax, and I doubt pulmonary embolus. Chest x-ray is normal. Treatment in the emergency department included administration of GI cocktail which improved her symptoms although not relieving them completely. Famotidine 20 mg administered orally. I discussed with her and her the diagnosis, symptomatic treatment and outpatient follow-up, as well as potentially worrisome signs or symptoms that should prompt reevaluation in the emergency department. - Sepsis Event Vital Signs: Vital Signs - 24 hr 06/19/18 12:59 Temperature 97.6 C H Heart Rate 74 Respiratory 20 Rate Blood Pressure 118/97 H O2 Saturation 100 Oxygen O2 Source Room air Departure - Departure Disposition: 01 Home, Self Care Clinical Impression: Atypical chest pain Gastroesophageal reflux disease Qualifiers: Esophagitis presence: esophagitis presence not specified Qualified Code(s): K21.9 - Gastro-esophageal reflux disease without esophagitis Condition: Stable Instructions: ED GERD Follow-Up: EMIR LEAL MD [Primary Care Provider] - Comments: Minimize coffee, anthony, alcohol. Continue taking omeprazole daily as previously prescribed. You can drink liquid antacid, such as Maalox or Mylanta, if you develop recurrent symptoms. Follow up with your primary physician within 2 weeks. Call to schedule appointment. Return to the emergency department if you develop increasing chest pain, shortness of breath, or otherwise worsening symptoms.
--- NOTE | 2018-06-19 14:11 | XRAY Report ---
Reason: Substernal chest pain Procedure Date: 06/19/2018 Accession Number: [id number] / [id number] Procedure: XR - Chest 2 View X-Ray CPT Code: 93160 FULL RESULT: EXAM: CHEST RADIOGRAPHY EXAM DATE: 06/19/2018 01:49 PM. CLINICAL HISTORY: Substernal chest pain. COMPARISON: CHEST 2 VIEW 01/11/2018. TECHNIQUE: 2 views. FINDINGS: Lungs/Pleura: No focal opacities evident. No pleural effusion. No pneumothorax. Normal volumes. Mediastinum: Heart and mediastinal contours are unremarkable. Other: None. IMPRESSION: Normal 2-view chest radiography for age and body habitus. No significant change from prior. [facility]
[2018-06-19] MEDS ORDERED: FAMOTIDINE 20 MG/2 ML VIAL IVP STA (14:14)
[2018-06-19] MEDS ORDERED: FAMOTIDINE 20 MG TABLET PO STA (14:42)
[2018-06-19 15:12] VITALS: BP 111/89
== END 2018-06-19 15:11 | disposition home or self-care (01) ==
LOC: ED 12:53
DX: R07.89 Other chest pain (principal); K21.9 Gastro-esophageal reflux disease without esophagitis
CPT/HCPCS: 71046; 93005; 99283; A9270

== ENCOUNTER 2018-08-09 00:05 | Outpatient (CLI) | payer OTHER | END 2018-08-09 00:06 | disposition EMS.NT | LOC: EMS 00:05 | PROVIDERS: ATTEND Surgery | DX: R41.82 Altered mental status, unspecified (principal) ==

== ENCOUNTER 2018-09-03 04:56 | Emergency (ER) | payer OTHER ==
[2018-09-03] MEDS ORDERED: HYDROmorphone 1 MG/ML CARPUJECT IVP STA (05:20)
[2018-09-03] MEDS ORDERED: ONDANSETRON 4 MG/2 ML VIAL IVP STA (05:20)
[2018-09-03] MEDS ORDERED: SODIUM CHLORIDE 0.9% 1,000 ML IV ONE (05:20)
--- NOTE | 2018-09-03 05:27 | ED Physician Documentation ---
PD HPI ABD PAIN - Stated complaint Stated Complaint: ABD PX - Chief complaint Chief Complaint: Abd Pain - History obtained from History obtained from: Patient - History of Present Illness Timing - onset: How many days ago (3) Timing - duration: Days (3) Timing - details: Gradual onset, Still present Quality: Sharp, Pain Location: RUQ Radiation: Right flank Improved by: Laying still Worsened by: Eating, Moving, Breathing, Position, Palpation Associated symptoms: Nausea, Vomiting, Diarrhea Similar symptoms before: Diagnosis (constipation, IBS) Recently seen: Not recently seen - Additional information Additional information: 38-year-old female with history of irritable bowel syndrome has developed right upper quadrant abdominal pain that is been present for 3 days. She states that she has had some nausea and vomiting associated with this and if she eats the pain becomes worse. She states this is different than what she has had previously with constipation. Review of Systems Constitutional: denies: Fever Eyes: denies: Decreased vision Ears: denies: Ear pain Nose: denies: Rhinorrhea / runny nose, Congestion Throat: denies: Sore throat Cardiac: denies: Chest pain / pressure, Palpitations Respiratory: denies: Dyspnea, Cough GI: reports: Abdominal Pain, Nausea, Vomiting, Diarrhea : denies: Dysuria, Frequency Skin: denies: Rash Musculoskeletal: denies: Neck pain, Back pain, Extremity pain Neurologic: denies: Generalized weakness, Focal weakness, Numbness PD PAST MEDICAL HISTORY - Past Medical History Past Medical History: Yes Respiratory: Asthma Endocrine/Autoimmune: None Psych: ADD/ADHD Musculoskeletal: Fibromyalgia - Past Surgical 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, 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 - Present Medications Home Medications: Ambulatory Orders Medication Instructions Recorded Confirmed Cholecalciferol (Vitamin D3) 2,000 unit DAILY 12/04/16 09/03/18 [Vitamin D3] Etodolac [Lodine] 400 mg ORAL BID 12/04/16 09/03/18 Loratadine [Claritin] 10 mg ORAL DAILY 12/04/16 09/03/18 Magnesium 500 mg ORAL DAILY 12/04/16 09/03/18 Milnacipran HCl [Savella] 50 mg ORAL BID 12/04/16 09/03/18 SUMAtriptan succinate [Sumatriptan 100 mg ORAL .FREQ PRN 12/04/16 09/03/18 Succinate] Topiramate 25 mg ORAL BID 12/04/16 09/03/18 buPROPion [Wellbutrin Sr] 300 mg ORAL DAILY 12/04/16 09/03/18 Guanfacine HCl 1 mg PO DAILY 09/10/17 09/03/18 Minocycline HCl 100 mg PO DAILY 09/10/17 09/03/18 Promethazine [Phenergan] 25 - 50 mg PO Q6H PRN #30 tab 09/10/17 09/03/18 Lisdexamfetamine Dimesylate 10 mg PO DAILY 04/26/18 09/03/18 [Vyvanse] Metoprolol Succinate [Toprol Xl] 25 mg PO DAILY 06/19/18 09/03/18 Dicyclomine [Bentyl] 20 mg PO QID PRN #20 capsule 09/03/18 - Allergies Allergies/Adverse Reactions: Allergies Allergy/AdvReac Type Severity Reaction Status Date / Time Penicillins Allergy Hives Verified 09/03/18 05:01 - Social History Does the pt smoke?: No Smoking Status: Never smoker Does the pt drink ETOH?: Yes Does the pt have substance abuse?: No - Immunizations Immunizations are current?: Yes - POLST Patient has POLST: No PD ED PE NORMAL - Vitals Vital signs reviewed: Yes (hypertensive ) - General General: Alert and oriented X 3, Well developed/nourished - HEENT HEENT: Atraumatic, PERRL - Neck Neck: Supple, no meningeal sign, No bony TTP - Cardiac Cardiac: RRR, No murmur - Respiratory Respiratory: No respiratory distress, Clear bilaterally - Abdomen Abdomen: Soft, Other (RUQ tenderness with arrest of inspiration with palpation. 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, No motor deficit, No sensory deficit, Normal speech Eye Opening: Spontaneous Motor: Obeys Commands Verbal: Oriented GCS Score: 15 - Psych Psych: Normal mood, Normal affect Results - Vitals Vitals: Vital Signs - 24 hr 09/03/18 04:58 Temperature 37 C Heart Rate 77 Respiratory 17 Rate Blood Pressure 130/89 H O2 Saturation 100 Oxygen O2 Source Room air - Labs Labs: Laboratory Tests 09/03/18 09/03/18 05:40 05:40 WBC 5.5 RBC 4.55 Hgb 14.3 Hct 41.2 MCV 90.4 MCH 31.5 H MCHC 34.9 RDW 12.5 Plt Count 272 MPV 6.9 L Neut # (Auto) 3.3 Lymph # (Auto) 1.6 Motley # (Auto) 0.5 Eos # (Auto) 0.0 Baso # (Auto) 0.1 Absolute Nucleated RBC 0.00 Nucleated RBC % 0.1 Sodium 139 Potassium 4.0 Chloride 108 Carbon Dioxide 24 Anion Gap 7.0 BUN 19 Creatinine 0.8 Estimated GFR (MDRD) 81 L Glucose 100 Calcium 8.6 Total Bilirubin 0.4 AST 18 ALT 15 Alkaline Phosphatase 54 Total Protein 6.6 L Albumin 3.6 Globulin 3.0 Albumin/Globulin Ratio 1.2 Lipase 38 - Rads (name of study) RUQ U/S Radiology: Prelim report reviewed (Impression: No definite findings to explain clinical symptoms.), EMP read indepedently, See rad report Procedures - Bedside sono Bedside sono by EMP: Use of bedside ultrasound the right kidney is imaged and it is sonographically tender and reproduces some of the pain the patient is experiencing but clearly anterior sonographic probing reveals a different location of the patient's pain. There is no hydro. I am unable to adequately visualize the gallbladder. PD MEDICAL DECISION MAKING - ED course Complexity details: reviewed results, re-evaluated patient, considered differential, d/w patient ED course: 38y/o female with right abdominal pain for 3 days has specific tenderness in the right upper quadrant and a negative GB ultrasound. She has a history of pains without findings and she has a diagnosis of irritable bowel. She describes her pain as undulating and spiking with severe cramping. Despite starting miralax she has not had relief. She is administered IV dialudid here with some improvement. We have given her some bentyl PO here. Departure - Departure Clinical Impression: Irritable bowel syndrome Qualifiers: Irritable bowel syndrome type: with both diarrhea and constipation Qualified Code(s): K58.2 - Mixed irritable bowel syndrome Condition: Stable Instructions: ED IBS, IBS Diet Lifestyle Follow-Up: EMIR LEAL MD [Primary Care Provider] - Prescriptions: Dicyclomine [Bentyl] 20 mg PO QID PRN #20 capsule PRN Reason: abdominal cramping
[2018-09-03 05:47] LABS: BASOPHILS # (AUTO) 0.1 10^3/uL (0.0-0.1); BASOPHILS % (AUTO) 1.2 %; HGB - HEMOGLOBIN 14.3 g/dL (12.0-16.0); LYMPHOCYTES # (AUTO) 1.6 10^3/uL (1.5-3.5); LYMPHOCYTES % (AUTO) 28.7 %; MEAN CORPUSCULAR HEMOGLOBIN 31.5 pg (27.0-31.0); MEAN CORPUSCULAR HGB CONC 34.9 g/dL (32.0-36.0); MEAN CORPUSCULAR VOLUME 90.4 fL (81.0-99.0); MEAN PLATELET VOLUME 6.9 fL (7.9-10.8); MONOCYTES # (AUTO) 0.5 10^3/uL (0.0-1.0); MONOCYTES % (AUTO) 9.9 %; NEUTROPHILS # (AUTO) 3.3 10^3/uL (1.5-6.6); NEUTROPHILS % (AUTO) 60.2 %; PLT - PLATELET COUNT 272 10^3/uL (130-450); RED BLOOD COUNT 4.55 10^6/uL (4.20-5.40); RED CELL DISTRIBUTION WIDTH 12.5 % (12.0-15.0); WHITE BLOOD COUNT 5.5 x10^3/uL (4.8-10.8)
[2018-09-03 06:00] LABS: ALBUMIN 3.6 g/dL (3.2-5.5); ALBUMIN/GLOBULIN RATIO 1.2 (1.0-2.2); BILIRUBIN,TOTAL 0.4 mg/dL (0.2-1.0); CALCIUM 8.6 mg/dL (8.5-10.3); CREATININE 0.8 mg/dL (0.4-1.0); TOTAL PROTEIN 6.6 g/dL (6.7-8.2)
--- NOTE | 2018-09-03 06:14 | Ultrasound Report ---
Reason: RUQ pain X 3d Procedure Date: 09/03/2018 Accession Number: [id number] / [id number] Procedure: US - Abdomen Limited CPT Code: FULL RESULT: EXAM: ABDOMEN ULTRASOUND LIMITED, RUQ EXAM DATE: 09/03/2018 05:49 AM. CLINICAL HISTORY: RUQ pain X 3d. COMPARISON: ABDOMEN LIMITED 04/22/2017 9:18 AM. TECHNIQUE: Real-time scanning was performed with static images obtained. FINDINGS: Liver: Liver parenchyma is difficult to assess secondary to body habitus. There are no focal masses. 15.7 cm. Main portal vein flow: Hepatopetal. Gallbladder: Normal. No stones, wall thickening, or sonographic Marie's sign. Biliary System: CBD measures 5 mm. No intrahepatic or extrahepatic ductal dilatation. Other: Right kidney measures 10.1 cm. Slight mild pelviectasis. IMPRESSION: No definite findings to explain clinical symptoms. RADIA
[2018-09-03] MEDS ORDERED: DICYCLOMINE 10 MG CAPSULE PO STA (06:37)
[2018-09-03 06:53] LABS: GLUCOSE, URINE (UA) NEGATIVE (NEGATIVE); KETONES,URINE (UA) NEGATIVE (NEGATIVE); LEUKOCYTE ESTERASE, URINE NEGATIVE (NEGATIVE); NITRITE,URINE NEGATIVE (NEGATIVE); OCCULT BLOOD,URINE NEGATIVE (NEGATIVE); PH,URINE 6.5 PH (5.0-7.5); PROTEIN,URINE NEGATIVE (NEGATIVE); UROBILINOGEN,URINE 0.2 (NORMAL) E.U./dL (NORMAL)
[2018-09-03 06:55] VITALS: BP 117/86
[2018-09-03 06:55] LABS: CLARITY,URINE CLEAR (CLEAR)
[2018-09-03 06:58] LABS: BILIRUBIN,URINE NEGATIVE (NEGATIVE); HCG UR QUAL NEGATIVE; ICTOTEST,URINE NEGATIVE
== END 2018-09-03 06:57 | disposition home or self-care (01) ==
LOC: ED 04:56
DX: K58.2 Mixed irritable bowel syndrome (principal)
CPT/HCPCS: 36415; 76705; 80053; 81003; 81025; 83690; 85025; 96361; 96374; 99283; A9270; J1170; 81001; 87086

== ENCOUNTER 2018-10-28 12:40 | Day surgery (SDC) | payer OTHER ==
--- NOTE | 2018-10-28 12:03 | ANESTHESIA ---
Pre-Anesthesia VS, & Labs - Diagnosis hematochezia, diarrhea, dysphagia - Procedure EGD, colonoscopy Height 5 ft 6 in Body Mass Index 29.5 - NPO >8 hours (finished prep at 9am) - Is Patient ?: No Home Medications and Allergies Cholecalciferol (Vitamin D3) [Vitamin D3] 2,000 unit DAILY 12/04/16 Etodolac [Lodine] 400 mg ORAL BID 12/04/16 Loratadine [Claritin] 10 mg ORAL DAILY 12/04/16 Magnesium 500 mg ORAL DAILY 12/04/16 Milnacipran HCl [Savella] 50 mg ORAL BID 12/04/16 SUMAtriptan succinate [Sumatriptan Succinate] 100 mg ORAL .FREQ PRN 12/04/16 Topiramate 25 mg ORAL BID 12/04/16 buPROPion [Wellbutrin Sr] 300 mg ORAL DAILY 12/04/16 Guanfacine HCl 1 mg PO DAILY 09/10/17 Minocycline HCl 100 mg PO DAILY 09/10/17 Lisdexamfetamine Dimesylate [Vyvanse] 10 mg PO DAILY 04/26/18 Metoprolol Succinate [Toprol Xl] 25 mg PO DAILY 06/19/18 Allergies/Adverse Reactions: Allergies Allergy/AdvReac Type Severity Reaction Status Date / Time Penicillins Allergy Hives Verified 09/03/18 05:01 Anes History & Medical History - Anesthetic History Anesthesia Complications: reports: No previous complications - Medical History Pulmonary: reports: Asthma Gastrointestinal: reports: GERD Musculoskeletal: reports: Fibromyalgia Endocrine/Autoimmune: reports: None Smoking Status: Never smoker - Surgical History Gynecologic: section, 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 Exam General: Alert Dental: WNL Mouth Opening: Greater than 4 Fingerbreadths Mallampati classification: II Respiratory: Lungs clear Cardiovascular: Regular rate, Normal S1, Normal S2 Mental/Cognitive Status: Alert/Oriented X3 Plan Anesthesia Type: MAC Consent for Procedure(s) Verified and Reviewed: Yes Code Status: Attempt Resuscitation ASA classification: 2-Mild systemic disease Is this case an emergency?: No
[2018-10-28] MEDS ORDERED: LACTATED RINGERS 1,000 ML IV ONE (13:45)
[2018-10-28 14:01] LABS: HCG UR QUAL NEGATIVE
[2018-10-28] MEDS ORDERED: PROPOFOL 200 MG/20 ML VIAL IVP ONE (15:56)
[2018-10-28] MEDS ORDERED: LIDOCAINE-MPF 2% 5 ML VIAL IM ONE (15:56)
[2018-10-28 16:19] VITALS: BP 124/90
== END 2018-10-28 12:41 | disposition home or self-care (01) ==
LOC: SDS 12:40
PROVIDERS: ATTEND Internal Medicine
PROC: 0DB78ZX Excision of Stomach, Pylorus, Via Natural or Artificial Opening Endoscopic, Diagnostic (ICD-10-PCS; 2018-10-28)
PROC: 0DB18ZX Excision of Upper Esophagus, Via Natural or Artificial Opening Endoscopic, Diagnostic (ICD-10-PCS; 2018-10-28)
PROC: 0DB38ZX Excision of Lower Esophagus, Via Natural or Artificial Opening Endoscopic, Diagnostic (ICD-10-PCS; 2018-10-28)
PROC: 0DBE8ZX Excision of Large Intestine, Via Natural or Artificial Opening Endoscopic, Diagnostic (ICD-10-PCS; principal; 2018-10-28 14:00)
PROC: 0DB98ZX Excision of Duodenum, Via Natural or Artificial Opening Endoscopic, Diagnostic (ICD-10-PCS; 2018-10-28 14:00)
DX: R13.14 Dysphagia, pharyngoesophageal phase (principal); R11.0 Nausea; R10.13 Epigastric pain; R19.4 Change in bowel habit; R19.7 Diarrhea, unspecified; R07.9 Chest pain, unspecified; K64.1 Second degree hemorrhoids; J45.909 Unspecified asthma, uncomplicated; Z87.891 Personal history of nicotine dependence; K21.9 Gastro-esophageal reflux disease without esophagitis
CPT/HCPCS: 43239; 45380; 81025; J7120

== ENCOUNTER 2019-09-16 08:40 | Outpatient (CLI) | payer OTHER ==
[2019-09-16] MEDS ORDERED: SINCALIDE 5 MCG VIAL ONE (09:51)
[2019-09-16] MEDS ORDERED: SINCALIDE 2 MCG in SODIUM CHLORIDE 0.9% 50 ML IV ONE (12:07)
--- NOTE | 2019-09-16 15:15 | Nuclear Medicine Report ---
Reason: RUQ, RT FLANK PAIN Procedure Date: 09/16/2019 Accession Number: [id number] / [id number] Procedure: NM - Hepatobiliary HIDA w/ Rx CPT Code: Final Report FULL RESULT: EXAM: HEPATOBILIARY SCAN WITH CCK/KINEVAC ADMINISTRATION EXAM DATE: 09/16/2019 09:16 AM. CLINICAL HISTORY: Right upper quadrant, right flank pain. COMPARISON: ABDOMEN LIMITED 09/03/2018 5:34 AM. TECHNIQUE: Following the intravenous administration of 5.2 mCi of Tc99m Mebrofenin, a hepatobiliary scan was done centered on the liver and gallbladder in multiple sequential images and projections. Following the intravenous administration of 2 mcg of CCK/ Kinevac over the course of approximately 60 minutes, dynamic imaging was done and the gallbladder ejection fraction was calculated. FINDINGS: Normal extraction of tracer from the blood pool indicating normal hepatocellular function. The liver size and shape is grossly within normal limits. There is activity visualized within the bile ducts, gallbladder, and small bowel during the first hour. With CCK administration, the gallbladder demonstrates contraction. The gallbladder ejection fraction is calculated to be 32%, below the lower limit of normal of 38% for a 60-minute injection. The patient did not report symptoms after CCK administration. No evidence of enteric reflux into the stomach. No significant collection of tracer remaining in the common bile duct by the end of the study. IMPRESSION: 1. Patent cystic duct. 2. Patent common bile duct. 3. Negative for acute or chronic cholecystitis. 4. No enterogastric bile reflux. 5. Gallbladder ejection fraction of 32% which in the absence of gallstones is consistent with functional gallbladder disorder. RADIA
== END 2019-09-16 08:41 | disposition home or self-care (01) ==
LOC: DI 08:40
PROVIDERS: ATTEND Internal Medicine
DX: K80.50 Calculus of bile duct without cholangitis or cholecystitis without obstruction (principal)
CPT/HCPCS: 78227; J7040

== ENCOUNTER 2019-11-12 14:27 | Emergency (ER) | payer OTHER ==
[2019-11-12 14:34] VITALS: BP 117/79
--- NOTE | 2019-11-12 14:46 | ED Physician Documentation ---
PD HPI HEENT - Stated complaint Stated Complaint: THROAT AND LT EAR PX - Chief complaint Chief Complaint: Heent - History obtained from History obtained from: Patient - History of Present Illness Timing - onset: Other (Left ear pain and congestion for 2 days with severe sore throat starting today. No fevers. 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 - Present Medications Home Medications: Ambulatory Orders Medication Instructions Recorded Confirmed Cholecalciferol (Vitamin D3) 2,000 unit DAILY 12/04/16 10/28/18 [Vitamin D3] Loratadine [Claritin] 10 mg ORAL DAILY 12/04/16 10/28/18 Magnesium 500 mg ORAL DAILY 12/04/16 10/28/18 Topiramate 25 mg ORAL BID 12/04/16 10/28/18 buPROPion [Wellbutrin Sr] 300 mg ORAL DAILY 12/04/16 10/28/18 Minocycline HCl 100 mg PO DAILY 09/10/17 10/28/18 Metoprolol Succinate [Toprol Xl] 25 mg PO DAILY 06/19/18 10/28/18 Hydrocodone/Acetaminophen 1 - 2 each PO Q6H PRN #7 tablet 11/12/19 [Hydrocodon-Acetaminophen 5-325] predniSONE [Deltasone] 60 mg PO DAILY 5 Days #15 tablet 11/12/19 - Allergies Allergies/Adverse Reactions: Allergies Allergy/AdvReac Type Severity Reaction Status Date / Time Penicillins Allergy Hives Verified 11/12/19 14:34 - Social History Does the pt smoke?: No Smoking Status: Never smoker Does the pt drink ETOH?: Yes Does the pt have substance abuse?: No - Immunizations Immunizations are current?: Yes - POLST Patient has POLST: No PD ED PE NORMAL - Vitals Vital signs reviewed: Yes - General General: Alert and oriented X 3, No acute distress - HEENT HEENT: PERRL, EOMI, Other (TMs are normal, retropharynx has cobblestoning and redness, no tonsillar swelling or exudate. No anterior adenopathy.) - Neck Neck: Supple, no meningeal sign, No bony TTP - Cardiac Cardiac: RRR, No murmur - Respiratory Respiratory: No respiratory distress, Clear bilaterally - Abdomen Abdomen: Non tender - Derm Derm: No rash - Neuro Neuro: Alert and oriented X 3, Normal speech Results - Vitals Vitals: Vital Signs - 24 hr 11/12/19 14:31 Temperature 36.6 C Heart Rate 87 Respiratory 16 Rate Blood Pressure 117/79 O2 Saturation 100 Oxygen O2 Source Room air - Labs Labs: Laboratory Tests 11/12/19 14:15 Group A Strep Rapid Negative Departure - Departure Disposition: Home, Self Care Clinical Impression: Viral pharyngitis Condition: Good Record reviewed to determine appropriate education?: Yes Instructions: ED Pharyngitis Viral Prescriptions: Hydrocodone/Acetaminophen [Hydrocodon-Acetaminophen 5-325] 1 - 2 each PO Q6H PRN #7 tablet PRN Reason: pain predniSONE [Deltasone] 60 mg PO DAILY 5 Days #15 tablet Comments: Recheck with your doctor in a week if not better, return for new or worsening symptoms.
[2019-11-12 14:53] LABS: RAPID STREP SCREEN Negative (Negative)
== END 2019-11-12 15:11 | disposition home or self-care (01) ==
LOC: ED 14:27
DX: J02.8 Acute pharyngitis due to other specified organisms (principal); B97.89 Other viral agents as the cause of diseases classified elsewhere
CPT/HCPCS: 87070; 87077; 87430; 99283; 99284

== ENCOUNTER 2019-12-18 09:02 | Outpatient (CLI) | payer OTHER ==
[2019-12-18 09:26] LABS: BASOPHILS # (AUTO) 0.1 10^3/uL (0.0-0.1); EOSINOPHILS # (AUTO) 0.2 10^3/uL (0.0-0.7); EOSINOPHILS % (AUTO) 2.2 %; HGB - HEMOGLOBIN 14.8 g/dL (12.0-16.0); LYMPHOCYTES # (AUTO) 1.6 10^3/uL (1.5-3.5); LYMPHOCYTES % (AUTO) 23.9 %; MEAN CORPUSCULAR HEMOGLOBIN 29.9 pg (27.0-31.0); MEAN CORPUSCULAR HGB CONC 32.2 g/dL (32.0-36.0); MEAN CORPUSCULAR VOLUME 92.9 fL (81.0-99.0); MEAN PLATELET VOLUME 8.6 fL (7.9-10.8); MONOCYTES # (AUTO) 0.6 10^3/uL (0.0-1.0); MONOCYTES % (AUTO) 8.4 %; NEUTROPHILS # (AUTO) 4.3 10^3/uL (1.5-6.6); NEUTROPHILS % (AUTO) 64.2 %; PLT - PLATELET COUNT 311 10^3/uL (130-450); RED BLOOD COUNT 4.95 10^6/uL (4.20-5.40); RED CELL DISTRIBUTION WIDTH 11.9 % (12.0-15.0); WHITE BLOOD COUNT 6.8 x10^3/uL (4.8-10.8)
== END 2019-12-18 09:03 | disposition home or self-care (01) ==
LOC: LAB 09:02
PROVIDERS: ATTEND Obstetrics & Gynecology
DX: Z01.812 Encounter for preprocedural laboratory examination (principal); N93.9 Abnormal uterine and vaginal bleeding, unspecified
CPT/HCPCS: 36415; 85025; 86850; 86900; 86901

== ENCOUNTER 2019-12-20 09:31 | Day surgery (SDC) | payer OTHER ==
[2019-12-20] MEDS ORDERED: ACETAMINOPHEN 1,000 MG/100 ML 100 ML IV ONE ×2 (09:37→12:38)
[2019-12-20] MEDS ORDERED: LACTATED RINGERS 1,000 ML IV ONE ×2 (09:42→13:19)
[2019-12-20] MEDS ORDERED: SILVER NITRATE APPLICATOR TOP ONE ×2 (11:19→13:00)
[2019-12-20] MEDS ORDERED: LIDOCAINE-MPF 1% 30 ML VIAL ONE (11:19)
--- NOTE | 2019-12-20 11:29 | ANESTHESIA ---
Pre-Anesthesia VS, & Labs - Diagnosis abnormal uterine bleeding - Procedure myosure hysteroscopy, D&C Vital Signs: Temp Pulse Resp BP Pulse Ox 37.0 C 69 16 113/89 H 100 12/20/19 09:46 12/20/19 09:46 12/20/19 09:46 12/20/19 09:46 12/20/19 09:46 Height 5 ft 6 in Weight (kg) 76.4 kg Body Mass Index 28.2 - NPO >8 hours - Is Patient ?: No Home Medications and Allergies Home Medications: Ambulatory Orders Halobetasol Propionate 15 gm TP BID 12/15/19 Lisdexamfetamine Dimesylate [Vyvanse] 40 mg PO DAILY 12/15/19 Sertraline HCl 50 mg PO DAILY 12/15/19 Sertraline HCl [Zoloft] 100 mg PO DAILY 12/15/19 raNITIdine [Zantac] 150 mg PO BID 12/15/19 Botox 12/20/19 Cholecalciferol (Vitamin D3) [Vitamin D3] 2,000 unit PO DAILY 12/04/16 Loratadine [Claritin] 10 mg ORAL DAILY 12/04/16 Magnesium 500 mg ORAL DAILY 12/04/16 Topiramate 25 mg ORAL BID 12/04/16 Halobetasol Propionate 15 gm TP BID 12/15/19 Lisdexamfetamine Dimesylate [Vyvanse] 40 mg PO DAILY 12/15/19 Sertraline HCl 50 mg PO DAILY 12/15/19 Sertraline HCl [Zoloft] 100 mg PO DAILY 12/15/19 raNITIdine [Zantac] 150 mg PO BID 12/15/19 Botox 12/20/19 Allergies/Adverse Reactions: Allergies Allergy/AdvReac Type Severity Reaction Status Date / Time Penicillins Allergy Hives Verified 12/20/19 09:54 Anes History & Medical History - Anesthetic History Anesthesia Complications: reports: No previous complications Family history of Anesthesia Complications: Denies Family history of Malignant Hyperthermia: Denies - Medical History Cardiovascular: reports: None Pulmonary: reports: Asthma Gastrointestinal: reports: GERD Urinary: reports: None Musculoskeletal: reports: Fibromyalgia Endocrine/Autoimmune: reports: None Skin: reports: Eczema Smoking Status: Never smoker - Surgical History General: Other Gynecologic: section, 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 Exam General: Alert, Oriented x3, Cooperative Dental: WNL Mouth Openin Fingerbreadth (braces, no rubberbands in place) Neck Mobility: Normal Respiratory: Lungs clear, Normal breath sounds, No respiratory distress Cardiovascular: Regular rate Mental/Cognitive Status: Normal for patient Cognitive Status: Within normal limits Plan Anesthesia Type: General Consent for Procedure(s) Verified and Reviewed: Yes Code Status: Attempt Resuscitation ASA classification: 2-Mild systemic disease Is this case an emergency?: No
[2019-12-20] MEDS ORDERED: MIDAZOLAM 2 MG/2 ML VIAL IVP ONE (12:38)
[2019-12-20] MEDS ORDERED: ONDANSETRON 4 MG/2 ML VIAL IVP ONE (12:38)
[2019-12-20] MEDS ORDERED: PROPOFOL 200 MG/20 ML VIAL IVP ONE (12:38)
[2019-12-20] MEDS ORDERED: LIDOCAINE-MPF 2% 5 ML VIAL IM ONE (12:38)
[2019-12-20] MEDS ORDERED: DEXAMETHASONE 4 MG/ML VIAL IVP ONE (12:38)
[2019-12-20] MEDS ORDERED: fentaNYL 100 MCG/2 ML VIAL IVP ONE (12:38)
[2019-12-20] MEDS ORDERED: KETOROLAC 30 MG/ML VIAL IVP ONE (12:38)
[2019-12-20] MEDS ORDERED: LIDOCAINE 1% 10 ML MDV SUBQ ONE ×2 (13:00)
[2019-12-20] MEDS ORDERED: oxyCODONE 5 MG TABLET PO PRN (13:20)
[2019-12-20] MEDS ORDERED: ONDANSETRON 4 MG/2 ML VIAL IVP PRN (13:20)
[2019-12-20] MEDS: HYDROmorphone 0.5 MG/0.5 ML SYRINGE IVP PRN ×2 (13:33→13:38)
--- NOTE | 2019-12-20 13:39 | OPERATIVE REPORT ---
Operative Report - General Procedure Date: 12/20/19 Planned Procedure: diagnostic hysteroscopy, dilation and curettage Pre-Op Diagnosis: abnormal uterine bleeding Procedure Performed: same as above Post Op Diagnosis: abnormal uterine bleeding, endocervical polyp - Procedure Note Primary Surgeon: Nichole Medeiros Anesthesia Provider: Jose Reyes Anesthesia Technique: General LMA Pathology: endometrial curettings IV Fluids (mL): 400 Estimated Blood Loss (mL): 5 Urine Output (mL): 190 Indications: abnormal uterine bleeding, unable to sample in clinic Findings: small sharply anteverted uterus, minimal mobility or descent. Wide arch, stage II rectocele. Normal endometrial cavity, bilateral normal ostia. Small endocervical polyp, removed. Scant curetting returned. Complications: none - Other Other Information/Narrative: Procedure: After informed consent was assured, the patient was taken to the operating room where anesthesia was induced. Pt was placed in high dorsal lithotomy using yellow fin stirrups. The patient was prepped and draped in the usual sterile fashion. Hysteroscopy equipment was set up and white balanced. A surgical timeout was performed. A speculum was inserted into the vagina, and a tenaculum was placed on the anterior lip of the cervix. 1% lidocaine plain was used to perform a paracervical block. Hegar dilators were used to dilate the cervix up to 7 mm; difficulty was noted dilating the cervix until the tenaculum was removed and replaced on the posterior lip of the cervix, facilitating improved traction to straighten the endocervical canal. The hysteroscope light was turned on and fluids were run through. The hysteroscope was passed through the cervix into the endometrial cavity, which was gently distended with fluid. Initially difficulty was noted distending the cavity, however after increasing the pressure to 100, better visualization was achieved. Bilateral ostia were visualized and appeared unremarkable. The uterine cavity was smooth and regular. Within the cervical canal a very small endocervical polyp was noted. The hysteroscope was withdrawn. A curette was introduced through the cervix and used to removed the endocervical polyp. The curette was then inserted to the fundus and withdrawn along all surfaces of the endometrium with scant tissue returned. The tenaculum was removed from the cervix; silver nitrate was applied to the tenaculum sites with good hemostasis observed. All instruments were removed from the vagina, and a repeat bimanual exam revealed a small firm uterus and no instruments in the vaginal vault. The pt was taken to PACU in stable condition.
[2019-12-20 14:48] VITALS: BP 113/87
== END 2019-12-20 09:32 | disposition home or self-care (01) ==
LOC: SDS 09:31
PROVIDERS: ATTEND Obstetrics & Gynecology
PROC: 0UDB7ZZ Extraction of Endometrium, Via Natural or Artificial Opening (ICD-10-PCS; 2019-12-20)
PROC: 0UJD8ZZ Inspection of Uterus and Cervix, Via Natural or Artificial Opening Endoscopic (ICD-10-PCS; 2019-12-20)
PROC: 0UBC7ZZ Excision of Cervix, Via Natural or Artificial Opening (ICD-10-PCS; principal; 2019-12-20 10:45)
DX: N93.9 Abnormal uterine and vaginal bleeding, unspecified (principal); N39.3 Stress incontinence (female) (male); N84.1 Polyp of cervix uteri; N81.6 Rectocele; J45.909 Unspecified asthma, uncomplicated; R39.15 Urgency of urination; F17.210 Nicotine dependence, cigarettes, uncomplicated; Z79.899 Other long term (current) drug therapy; Z88.0 Allergy status to penicillin; Z98.51 Tubal ligation status

== ENCOUNTER 2020-03-18 09:57 | Outpatient (CLI) | payer OTHER ==
[2020-03-18 10:22] LABS: BASOPHILS # (AUTO) 0.1 10^3/uL (0.0-0.1); BASOPHILS % (AUTO) 0.8 %; EOSINOPHILS # (AUTO) 0.1 10^3/uL (0.0-0.7); EOSINOPHILS % (AUTO) 1.9 %; HGB - HEMOGLOBIN 15.1 g/dL (12.0-16.0); LYMPHOCYTES # (AUTO) 1.7 10^3/uL (1.5-3.5); LYMPHOCYTES % (AUTO) 22.5 %; MEAN CORPUSCULAR HEMOGLOBIN 30.5 pg (27.0-31.0); MEAN CORPUSCULAR HGB CONC 32.9 g/dL (32.0-36.0); MEAN CORPUSCULAR VOLUME 92.7 fL (81.0-99.0); MONOCYTES # (AUTO) 0.6 10^3/uL (0.0-1.0); MONOCYTES % (AUTO) 8.3 %; NEUTROPHILS % (AUTO) 66.2 %; PLT - PLATELET COUNT 301 10^3/uL (130-450); RED BLOOD COUNT 4.95 10^6/uL (4.20-5.40); WHITE BLOOD COUNT 7.5 x10^3/uL (4.8-10.8)
== END 2020-03-18 09:58 | disposition home or self-care (01) ==
LOC: LAB 09:57
PROVIDERS: ATTEND Obstetrics & Gynecology
DX: N93.9 Abnormal uterine and vaginal bleeding, unspecified (principal)
CPT/HCPCS: 36415; 85025; 86850; 86900; 86901

== ENCOUNTER 2020-03-20 08:53 | Inpatient (IN) | payer OTHER ==
[2020-03-20] MEDS ORDERED: LACTATED RINGERS 1,000 ML IV ONE ×3 (09:36→16:43)
[2020-03-20 09:54] LABS: HCG UR QUAL NEGATIVE
[2020-03-20] MEDS ORDERED: GENTAMICIN IV ONE ×2 (11:00→11:25)
[2020-03-20] MEDS ORDERED: CLINDAMYCIN IV 900 MG/50 ML IV ONE (11:00)
[2020-03-20] MEDS ORDERED: SODIUM CHLORIDE 0.9% IV ONE ×2 (11:00→11:25)
[2020-03-20] MEDS ORDERED: BUPIVACAINE 0.25% PF 30 ML VIAL ONE ×2 (11:15→12:56)
[2020-03-20] MEDS ORDERED: SCOPOLAMINE PATCH TOP ONE (11:25)
--- NOTE | 2020-03-20 11:42 | ANESTHESIA ---
Pre-Anesthesia VS, & Labs - Diagnosis Abnormal Uterine Bleeding - Procedure Laparoscopic Hysterectomy Vital Signs: Temp Pulse Resp BP Pulse Ox 36.6 C 70 16 134/83 H 100 03/20/20 09:09 03/20/20 09:09 03/20/20 09:09 03/20/20 09:09 03/20/20 09:09 Height 5 ft 4.57 in Weight (kg) 77.3 kg Body Mass Index 28.2 - Is Patient ?: No - Lab Results Lab results reviewed: Yes Home Medications and Allergies Home Medications: Ambulatory Orders Pantoprazole [Protonix] 40 mg PO DAILY 03/14/20 Venlafaxine ER [Effexor ER] 37.5 mg PO DAILY 03/20/20 Active Medications Clindamycin Phosphate (Cleocin 900 Mg/50 Ml) 50 mls @ 50 mls/hr IV ONCE ONE Stop: 03/20/20 11:59 Gentamicin Sulfate 380 mg/ (Sodium Chloride) 109.5 mls @ 108.125 mls/hr IV ONCE ONE Stop: 03/20/20 12:00 Topiramate 25 mg ORAL BID 12/04/16 Pantoprazole [Protonix] 40 mg PO DAILY 03/14/20 Venlafaxine ER [Effexor ER] 37.5 mg PO DAILY 03/20/20 Allergies/Adverse Reactions: Allergies Allergy/AdvReac Type Severity Reaction Status Date / Time Penicillins Allergy Hives Verified 03/14/20 11:22 Anes History & Medical History - Anesthetic History Anesthesia Complications: reports: Post-Operative Nausea/Vomiting Family history of Anesthesia Complications: Denies Family history of Malignant Hyperthermia: Denies - Medical History Cardiovascular: reports: None Pulmonary: reports: None Gastrointestinal: reports: GERD Urinary: reports: Other Musculoskeletal: reports: Fibromyalgia Endocrine/Autoimmune: reports: None Skin: reports: None Smoking Status: Former smoker Psychosocial: reports: Cannabis - Surgical History General: Other Gynecologic: section, 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, 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 Exam General: Alert, Oriented x3, Cooperative Dental: WNL Mouth Openin Fingerbreadth Neck Mobility: Normal Mallampati classification: I Thyromental Distance: 4-6 cm Respiratory: Normal breath sounds, No respiratory distress Cardiovascular: Regular rate Neurological: Normal speech Mental/Cognitive Status: Alert/Oriented X3 Cognitive Status: Within normal limits Plan Anesthesia Type: General Consent for Procedure(s) Verified and Reviewed: Yes Code Status: Attempt Resuscitation ASA classification: 2-Mild systemic disease Is this case an emergency?: No
[2020-03-20] MEDS ORDERED: HYDROmorphone 1 MG/ML CARPUJECT IVP ONE (12:22)
[2020-03-20] MEDS ORDERED: PROPOFOL 200 MG/20 ML VIAL IVP ONE (12:22)
[2020-03-20] MEDS ORDERED: LIDOCAINE-MPF 2% 5 ML VIAL IM ONE (12:22)
[2020-03-20] MEDS ORDERED: DEXAMETHASONE 4 MG/ML VIAL IVP ONE (12:22)
[2020-03-20] MEDS ORDERED: ONDANSETRON 4 MG/2 ML VIAL IVP ONE (12:22)
[2020-03-20] MEDS ORDERED: ROCURONIUM 50 MG/5 ML VIAL IVP ONE (12:22)
[2020-03-20] MEDS ORDERED: fentaNYL 250 MCG/5 ML VIAL IVP ONE (12:22)
[2020-03-20] MEDS ORDERED: PHENYLEPHRINE 10 MG/ML VIAL IV ONE (12:22)
[2020-03-20] MEDS ORDERED: BUPIVACAINE 0.25% PF 30 ML VIAL SUBQ ONE ×2 (12:50)
[2020-03-20] MEDS ORDERED: SUGAMMADEX 200 MG/2 ML VIAL IVP ONE (15:54)
[2020-03-20] MEDS ORDERED: HYDROmorphone 0.5 MG/0.5 ML SYRINGE IVP PRN (16:16)
[2020-03-20] MEDS ORDERED: ONDANSETRON 4 MG/2 ML VIAL IVP PRN (16:16)
--- NOTE | 2020-03-20 16:21 | OPERATIVE REPORT ---
Operative Report - General Admit Date: 03/20/20 Procedure Date: 03/20/20 Planned Procedure: total laparoscopic hysterectomy, bilateral salpingectomy, cystoscopy Pre-Op Diagnosis: abnormal uterine bleeding Procedure Performed: diagnostic laparoscopy, lysis of adhesions, total abdominal hysterectomy, bilateral salpingectomy, cystoscopy Post Op Diagnosis: same as above, abdominal and pelvic adhesive disease - Procedure Note Primary Surgeon: Nichole Medeiros Secondary Surgeon: Anna Gutierrez Anesthesia Provider: Wanda Aquino Anesthesia Technique: General ET tube Pathology: uterus with cervix and bilateral fallopian tubes IV Fluids (mL): 1,800 Estimated Blood Loss (mL): 275 Urine Output (mL): 275 Indications: abnormal uterine bleeding Findings: thick omental adhesion from just caudad to umbilicus covering most of left lower quadrant anterior abdominal wall. Bladder scarred densely to 2/3 up uterus. Conversion to laparotomy due to bladder adhesions. Cystoscopy with intact mucosa and brisk bilateral ureteral jets. Complications: none - Other Other Information/Narrative: After informed consent was obtained, the patient was taken to the operating room, where general anesthesia was administered without difficulty. Exam under anesthesia performed, revealing a small anteverted uterus and no mass. The patient was prepped and draped in normal sterile fashion in the dorsal lithotomy position. Surgical time out was performed. A speculum was placed in the vagina and the anterior cervix was grasped with a single tooth tenaculum. The uterus sounded to 8 cm. Hegar dilators were used to dilate the cervix to 15 Danish. The Embedded Software Manager uterine manipulator with 8 cm tip and 3.0 colpotomy ring was placed up to the fundus and the tip balloon was inflated with 10 ml of air. The colpotomy cup was advanced around the cervix and locked into place. Pablo catheter was placed into the bladder, draining clear yellow urine. Attention was directed to the abdomen. After confirming a gastric tube was placed and the bed was flat, 0.25% marcaine was injected at the umbilicus and a 5mm port was inserted through a horizontal skin incision under direct visualization with the laparoscope. The abdomen was partially insufflated with <5mmHg initial insufflation pressure which was increased to achieve complete pneumoperitoneum at 15 mmHg. A survey of the abdominal cavity revealed no bowel injury under the entry site, normal liver edge and gallbladder. A large omental adhesion to the anterior abdominal wall was noted to be obscuring the view of the left lower quadrant. The uterus was noted to have a small anterior fibroid. Normal fallopian tubes were seen with evidence of prior tubal ligation and Filchie clips present bilaterally. The bilateral ovaries were normal. Some metal clips were noted in the omentum, which appeared consistent with shruti. The ureter was identified and noted to vermiculate on each side. Three additional 5 mm ports were then placed under direct visualization, one on the right lower quadrant; the camera was placed through this port in order to visualize the left lower quadrant beyond the adhesion as the left lower quadrant port was placed, and then an additional port was placed at Mg's point in the left upper quadrant in order to facilitate dissection of the adhesion. The Ligasure was used to dissect the omental adhesion down from the abdominal wall. Good hemostasis was maintained. The left fallopian tube was grasped at the fimbria and elevated; the Ligasure energy device was used to separate the tube from the mesosalpinx to the level of its prior transection by Filschie clip. The tube was then placed anterior to the uterus. The same procedure was repeated on the right. The right cornua was gently grasped and elevated; the Ligasure energy device was used to divide the round ligament. This procedure was repeated on the left. Due to the dense scar tissue of the bladder to the uterus, difficulty was noted developing a plane for dissection of the bladder flap. Difficulty was noted visualizing the area of desired dissection around the anterior uterine fibroid, so the camera was switched ot a 30 degree. The monopolar L hook was used to score along the area of desired dissection without finding a plane; the vesicouterine serosa was noted to be dense with adhesion. Due to concern for inability to safely develop this space laparoscopically, the decision was made to convert to laparotomy. A pfannenstiel incision was made sharply through the pre-existing scar and carried down to the fascia with cautery. The fascia was scored and sharply dissected off the rectus muscles cephalad and caudad. The peritoneum was identified in the midline and entered sharply. The cavity was swept digitally and no significant adhesions were noted. The incision was extended superiorly and inferiorly with cautery. A large Jeovanny retractor was placed with manual confirmation that no bowels were trapped between the retractor and the abdominal wall. The bowels were gently packed cephalad with moist laparotomy sponges and held in place with the malleable retractor. The previously resected fimbriae were removed from the anterior cul de sac and passed off to send to pathology. One Filschie clips was also removed, as it was free-floating in the pelvis. The cornua of the uterus were grasped with Carmalt clamps bilaterally and the uterus was elevated to the incision. A bladder flap was developed with judicious use of sharp and blunt dissection. The utero-ovarian vessels on the left were double clamped, transected, and secured with a free tie followed by a stitch. A window was then made in the posterior leaf of the broad ligament isolating the utero-ovarian vessels on the right. These were clamped, transected and secured with a free tie. The uterine arteries were skeletonized on each side, clamped, and secured with a Larissa transfixion stitch. Straight clamps were then used to serially divide the broad and cardinal ligaments on each side, keeping each bite medial to the prior pedicles. Some bleeding was noted from a pedicle on the left which was secured with a figure of eight suture. The manipulator was removed from the uterus to enable ongoing placement of clamps below the cervix. At the level of the cervix, moderately curved zeppelin clamps were placed along the vaginal cuff immediately beneath the cervix and the uterus with cervix was dissected off. 0 vicryl was then used to close the cuff with a running suture from the midline of the cuff to each edge, followed by a running locked suture. Some bleeding was noted just posterior to the cuff in the midline, and this was secured with a figure of eight suture. One additional suture was placed just anterior to the left edge of the cuff for hemostasis. The pelvis was irrigated with sterile water, and no active bleeding was observed. All sponges were removed from the abdomen, and the Jeovanny retractor was removed. Attention was turned to the cystoscopy. The pablo catheter was removed and the 30 degree cystoscope set up and white balanced. Fluids were run through and the 70 degree cystoscope was gently advanced through the urethra into the bladder. Bilateral ureteral orifices were identified and brisk ureteral jets were visualized bilaterally. Survey of the bladder mucosa revealed no evidence of perforation or stitch from the surgery. The bladder was drained and the cystoscope was removed. Attention was returned to the abdomen. Good hemostasis was noted. Each laparoscopic port site was closed with a single buried suture of 4-0 monocryl. The fascial incision was then closed with a running suture of 0 PDS. The subcutaneous space was closed with interrupted sutures of 2-0 vicryl. The skin was reapproximated with a running subcuticular suture of 4-0 monocryl. A silver dressing was placed over the incision. Dermabond skin adhesive was placed over each port site. Vaginal vault was cleared of all instruments. Lap, instrument, and needle counts were correct x 2. Anesthesia performed a transverse abdominis plane block for postoperative pain relief. Pt was awakened from anesthesia and transferred to PACU in stable condition.
[2020-03-20] MEDS: HYDROmorphone 1 MG/ML CARPUJECT ONE ×4 (16:25→16:54)
[2020-03-20] MEDS: fentaNYL 100 MCG/2 ML VIAL ONE ×3 (16:42→17:01)
[2020-03-20] MEDS: HYDROmorphone 0.5 MG/0.5 ML SYRINGE ONE ×2 (17:11→17:18)
[2020-03-20] MEDS: ACETAMINOPHEN 500 MG TABLET PO SCH ×2 (18:19→23:49)
[2020-03-20] MEDS: LACTATED RINGERS 1,000 ML IV SCH (18:21)
[2020-03-20] MEDS: oxyCODONE 5 MG TABLET PO PRN (18:50)
[2020-03-20] MEDS: DOCUSATE SODIUM 100 MG CAPSULE PO SCH (22:13)
[2020-03-21] MEDS: oxyCODONE 5 MG TABLET PO PRN ×4 (03:01→23:50)
[2020-03-21] MEDS: LACTATED RINGERS 1,000 ML IV SCH (04:10)
[2020-03-21 05:49] LABS: BASOPHILS % (AUTO) 0.2 %; HGB - HEMOGLOBIN 13.6 g/dL (12.0-16.0); LYMPHOCYTES # (AUTO) 1.6 10^3/uL (1.5-3.5); LYMPHOCYTES % (AUTO) 12.1 %; MEAN CORPUSCULAR HEMOGLOBIN 30.3 pg (27.0-31.0); MEAN CORPUSCULAR HGB CONC 32.9 g/dL (32.0-36.0); MEAN PLATELET VOLUME 9.3 fL (7.9-10.8); MONOCYTES # (AUTO) 1.3 10^3/uL (0.0-1.0); MONOCYTES % (AUTO) 10.3 %; NEUTROPHILS # (AUTO) 9.9 10^3/uL (1.5-6.6); NEUTROPHILS % (AUTO) 76.9 %; PLT - PLATELET COUNT 271 10^3/uL (130-450); RED BLOOD COUNT 4.49 10^6/uL (4.20-5.40); WHITE BLOOD COUNT 12.9 x10^3/uL (4.8-10.8)
[2020-03-21] MEDS: ACETAMINOPHEN 500 MG TABLET PO SCH ×3 (05:55→18:21)
--- NOTE | 2020-03-21 07:21 | PROVIDER PROGRESS NOTE ---
Subjective - Prog Note Date Prog Note Date: 03/21/20 Prog Note Time: 07:10 - Subjective Pt reports feeling: Improved Subjective: Patient doing well overnight. Some mild nausea, no emesis, now tolerating light snacks (jello, crackers) as well as oral medications. Not yet ambulating. Catheter in place, not yet voiding spontaneously. Sore around incisions but otherwise pain well controlled. No flatus yet. Objective - Vital Signs/Intake & Output Vital Signs: Vital Signs x48h Temp Pulse Resp BP Pulse Ox 03/21/20 04:08 99.0 F 70 18 126/76 100 03/20/20 23:44 98.4 F 72 18 134/84 H 100 Intake & Output: Intake & Output 03/18/20 03/19/20 03/20/20 03/21/20 23:59 23:59 23:59 23:59 Intake Total 2850 1256.667 Output Total 1860 1600 Balance 990 -343.333 - Objective General Appearance: positive: No acute distress Abdomen: positive: No distention (Dermabond skin adhesive over port sites, silver dressing over pfannenstiel with no strikethrough. Soft with no rebound, appropriate armando-incisional tenderness.) Extremities: positive: Non-tender Neurologic/Psychiatric: positive: Oriented x3 - Lab Results Fish Bones: 03/21/20 05:18 Other Labs: Lab Results x24hrs 03/21/20 03/20/20 Range/Units 05:18 09:40 WBC 12.9 H (4.8-10.8) x10^3/uL RBC 4.49 (4.20-5.40) 10^6/uL Hgb 13.6 (12.0-16.0) g/dL Hct 41.3 (37.0-47.0) % MCV 92.0 (81.0-99.0) fL MCH 30.3 (27.0-31.0) pg MCHC 32.9 (32.0-36.0) g/dL RDW 12.0 (12.0-15.0) % Plt Count 271 (130-450) 10^3/uL MPV 9.3 (7.9-10.8) fL Neut # (Auto) 9.9 H (1.5-6.6) 10^3/uL Lymph # (Auto) 1.6 (1.5-3.5) 10^3/uL [place] # (Auto) 1.3 H (0.0-1.0) 10^3/uL Eos # (Auto) 0.0 (0.0-0.7) 10^3/uL Baso # (Auto) 0.0 (0.0-0.1) 10^3/uL Absolute Nucleated RBC 0.00 x10^3/uL Nucleated RBC % 0.0 /100WBC Ur Specific [place] 1.010 (1.002-1.030) Urine HCG, Qual NEGATIVE Assessment/Plan - Problem List (1) Postoperative state Impression: 39 yo woman POD#1 s/p operative l/s with lysis of adhesions and NATASHA/BS/cysto. Doing well overnight. VS wnl, exam benign. UOP adequate. -Postoperative pain control. Encouraged oral medications today (tylenol, motrin and roxicodone). -Ambulate this AM -Ley catheter out this AM with due to void -Dispo. Anticipate discharge tomorrow AM if meeting all milestones
[2020-03-21] MEDS: DOCUSATE SODIUM 100 MG CAPSULE PO SCH ×2 (08:01→21:27)
[2020-03-21] MEDS: IBUPROFEN 800 MG TABLET PO SCH ×3 (08:01→21:27)
--- NOTE | 2020-03-21 09:06 | PHARMACY PROGRESS NOTE ---
- Best Possible Medication History Admit Date and Time: 03/20/20 0853 Processed by: Pharmacy Medication History completed: Yes Secondary Source(s): Physician records, Pharmacy records, Insurance records As the person ultimately responsible for medication therapy, providers are able to order a medication from an existing home medication list in [facility] via the "Reconcile Routine" prior to Confirmation of that medication by learning support specialist. Such practice is discouraged except when the physician, in their clinical judgment, deems that a medical need exists for a medication without regard to previous use.
[2020-03-21] MEDS: SIMETHICONE CHEW 80 MG TABLET PO SCH ×2 (18:27→21:27)
[2020-03-22] MEDS: ACETAMINOPHEN 500 MG TABLET PO SCH ×2 (04:02→05:15)
[2020-03-22] MEDS: IBUPROFEN 800 MG TABLET PO SCH (05:14)
--- NOTE | 2020-03-22 07:41 | PROVIDER PROGRESS NOTE ---
Subjective - Prog Note Date Prog Note Date: 03/22/20 Prog Note Time: 07:05 - Subjective Pt reports feeling: Improved Subjective: Pt doing very well. Reports tolerating regular diet without nausea/vomiting. Pain well controlled with mostly tylenol and motrin, infrequent roxicodone use. Ambulating without difficulty. Voiding spontaneously. Passing flatus. Feels ready to go home. Objective - Vital Signs/Intake & Output Vital Signs: Vital Signs x48h Temp Pulse Resp BP Pulse Ox 03/22/20 05:13 98.2 F 77 16 120/72 99 03/21/20 23:44 98.1 F 64 16 114/68 99 Intake & Output: Intake & Output 03/19/20 03/20/20 03/21/20 03/22/20 23:59 23:59 23:59 23:59 Intake Total 2850 4076.667 Output Total 1860 3500 350 Balance 990 576.667 -350 - Objective General Appearance: positive: No acute distress Abdomen: positive: No distention (soft, appropriate armando-incisional tenderness, port sites c/d/i with skin adhesive in place, silver dressing over pfannenstiel, no strikethrough) Skin: positive: Color nml Extremities: positive: Non-tender Neurologic/Psychiatric: positive: Oriented x3 - Lab Results Fish Bones: 03/21/20 05:18 Assessment/Plan - Problem List (1) Postoperative state Impression: 39 yo POD#2 s/p operative l/s with lysis of adhesions, NATASHA/BS/cysto. VS wnl, exam benign. Dispo: home today with close interval f/u. Discharge precautions reviewed.
--- NOTE | 2020-03-22 07:44 | DISCHARGE SUMMARY ---
Discharge Summary Admit Date: 03/20/20 Discharge Date: 03/22/20 Discharging Provider: Nichole Medeiros Code Status: Attempt Resuscitation Condition at Discharge: Good Discharge Disposition: 01 Home, Self Care - DIAGNOSES Admission Diagnoses: abnormal uterine bleeding Discharge Diagnoses with Status of Each Condition: same as above, pelvic adhesive disease - HPI History of Present Illness: 39 yo with abnormal uterine bleeding desiring definitive management with hysterectomy. - CONSULTS | PROCEDURES Procedures: operative laparoscopy with lysis of adhesions, total abdominal hysterectomy, bilateral salpingectomy, cystoscopy - HOSPITAL COURSE Hospital Course: Patient admitted for planned surgery. Underwent operative laparoscopy with lysis of adhesions, conversion to laparotomy due to adhesive disease and total abdominal hysterectomy, bilateral salpingectomy, cystoscopy. On POD#1 her pablo catheter was removed and she was able to void spontaneously. She remained afebrile throughout her stay. At the time of discharge, she was ambulating, pain was well controlled, and she was tolerating a regular diet. - ALLERGIES Allergies/Adverse Reactions: Allergies Allergy/AdvReac Type Severity Reaction Status Date / Time Penicillins Allergy Hives Verified 03/14/20 11:22 - MEDICATIONS Home Medications: Ambulatory Orders Medication Instructions Recorded Confirmed Topiramate 25 mg ORAL BID 12/04/16 03/14/20 Pantoprazole [Protonix] 40 mg PO DAILY 03/14/20 03/20/20 Rizatriptan Benzoate [Rizatriptan] 10 mg PO DAILY PRN 03/20/20 03/21/20 Venlafaxine ER [Effexor ER] 37.5 mg PO DAILY 03/20/20 03/20/20 - PHYSICAL EXAM AT DISCHARGE General Appearance: positive: No acute distress (see progress note for full exam) - LABS Result Diagrams: 03/21/20 05:18 - FOLLOW UP Follow Up: Follow up with Dr. Medeiros at [facility] at [address] for at least 2 weeks after your surgery. You should never drive if you are using prescription pain medicine and you should not drive until you feel you could react quickly in traffic. After surgery expect to have both good days and bad days as you recover. The first few days after surgery most women are sore so plan to stay at home and have someone nearby to help out. As you begin to recover gradually increase your activity. For the first 4 weeks after surgery please do not: "work out", do house work, or lift objects heavier than 10 lbs (approximately a gallon of milk). Please do not have intercourse or place anything in the vagina for 6 weeks after surgery. You may shower but do not take baths or swim. Use a stool softener for 2-4 weeks so that you do not need to strain for bowel movements. [id number] may be added for constipation. When to call the clinic [phone], or come to the Emergency Department: Bleeding heavier than a period, wound redness or drainage, vomiting, severe pain, fever to 100.4 or higher, inability or difficulty emptying your bladder or any other unusual symptoms. - TIME SPENT Time Spent in Discharge (Minutes): 20
[2020-03-22 08:42] VITALS: BP 110/77
[2020-03-22] MEDS: SIMETHICONE CHEW 80 MG TABLET PO SCH (09:21)
[2020-03-22] MEDS: oxyCODONE 5 MG TABLET PO PRN (09:21)
[2020-03-22] MEDS: DOCUSATE SODIUM 100 MG CAPSULE PO SCH (09:22)
== END 2020-03-22 09:35 | disposition home or self-care (01) | DRG 743 ==
LOC: MS2 08:53
PROVIDERS: ADMIT Obstetrics & Gynecology; ATTEND Obstetrics & Gynecology
PROC: 0UJD4ZZ Inspection of Uterus and Cervix, Percutaneous Endoscopic Approach (ICD-10-PCS; 2020-03-20)
PROC: 0DNW0ZZ Release Peritoneum, Open Approach (ICD-10-PCS; 2020-03-20)
PROC: 0UT74ZZ Resection of Bilateral Fallopian Tubes, Percutaneous Endoscopic Approach (ICD-10-PCS; 2020-03-20)
PROC: 0UT90ZZ Resection of Uterus, Open Approach (ICD-10-PCS; principal; 2020-03-20 10:15)
DX: N92.4 Excessive bleeding in the premenopausal period (principal); D25.9 Leiomyoma of uterus, unspecified; F31.9 Bipolar disorder, unspecified; F41.9 Anxiety disorder, unspecified; K21.9 Gastro-esophageal reflux disease without esophagitis; G43.109 Migraine with aura, not intractable, without status migrainosus; F10.11 Alcohol abuse, in remission; Z72.89 Other problems related to lifestyle; Z87.891 Personal history of nicotine dependence
CPT/HCPCS: 36415; 81025; 85025

== ENCOUNTER 2020-09-25 12:51 | Emergency (ER) | payer OTHER ==
[2020-09-25] MEDS ORDERED: SODIUM CHLORIDE 0.9% 1,000 ML IV STA (14:34)
--- NOTE | 2020-09-25 14:39 | ED Physician Documentation ---
PD HPI URI - Stated complaint Stated Complaint: CHEST PX/BODY ACHES - Chief complaint Chief Complaint: Cardiac - History obtained from History obtained from: Patient - History of Present Illness Timing - onset: How many days ago (3) Timing duration: Days (3) Timing details: Gradual onset Pain level max: 4 Pain level now: 3 Associated symptoms: Chills, Sore throat, Other (nausea, mild diarrhea, no vomiting.). No: Fever, Sweats, Ear pain, Nasal congestion, Rhinorrhea Improves by: Rest (also complains of L sided chest pain, radiates to the back. worse lying down and breathing.) Recently seen: Not recently seen Review of Systems GI: denies: Vomiting, Diarrhea : denies: Dysuria, Frequency, Hesitancy, Now EGA Skin: denies: Rash Musculoskeletal: denies: Neck pain, Back pain, Extremity pain Neurologic: denies: Headache PD PAST MEDICAL HISTORY - Past Medical History Past Medical History: Yes Cardiovascular: None Respiratory: Asthma Neuro: Migraines Endocrine/Autoimmune: Other GI: GERD : Other HEENT: None Psych: Depression, Anxiety, ADD/ADHD Musculoskeletal: Fibromyalgia Derm: Eczema, Psoriasis - Past Surgical History Past Surgical History: No 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, 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, 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, Hysterectomy - Present Medications Home Medications: Ambulatory Orders Medication Instructions Recorded Confirmed Topiramate 25 mg ORAL BID 12/04/16 09/25/20 Lisdexamfetamine Dimesylate 50 mg ORAL DAILY 09/25/20 09/25/20 [Vyvanse] Nitrofurantoin Monohyd/M-Cryst 100 mg PO BID #10 capsule 09/25/20 [Macrobid 100 mg Capsule] - Allergies Allergies/Adverse Reactions: Allergies Allergy/AdvReac Type Severity Reaction Status Date / Time Penicillins Allergy Hives Verified 09/25/20 13:04 - Social History Does the pt smoke?: Yes Smoking Status: Current every day smoker Does the pt drink ETOH?: Yes Does the pt have substance abuse?: Yes Substance Use and Type: Marijuana - Immunizations Immunizations are current?: Yes - POLST Patient has POLST: No PD ED PE NORMAL - Vitals Vital signs reviewed: Yes - General General: Alert and oriented X 3, No acute distress - HEENT HEENT: PERRL, Ears normal, Moist mucous membranes, Pharynx benign - Neck Neck: Supple, no meningeal sign - Cardiac Cardiac: RRR, Strong equal pulses - Respiratory Respiratory: No respiratory distress, Clear bilaterally - Abdomen Abdomen: Soft, Non tender, Non distended - Back Back: No CVA TTP - Derm Derm: Warm and dry - Extremities Extremities: No calf tenderness / cord - Neuro Neuro: Alert and oriented X 3, ribbon cutter 2-12 intact, No motor deficit, No sensory deficit, Normal speech - Psych Psych: Normal mood, Normal affect Results - Vitals Vitals: Vital Signs - 24 hr 09/25/20 09/25/20 09/25/20 13:00 14:20 15:51 Temperature 36.6 C 37.2 C Heart Rate 93 73 72 Respiratory 16 16 18 Rate Blood Pressure 122/84 H 116/86 H 121/82 H O2 Saturation 100 100 100 Oxygen O2 Source Room air - EKG (time done) 1301 Rate: Rate (enter#) (84) Rhythm: NSR Beason: Normal Intervals: Normal NM QRS: Normal Ischemia: Normal ST segments Computer interpretation: Agree with computer - Labs Labs: Laboratory Tests 09/25/20 09/25/20 09/25/20 14:45 14:45 14:45 WBC 9.2 RBC 4.77 Hgb 14.4 Hct 43.8 MCV 91.8 MCH 30.2 MCHC 32.9 RDW 12.1 Plt Count 331 MPV 8.6 Neut # (Auto) 6.4 Lymph # (Auto) 1.9 [place] # (Auto) 0.6 Eos # (Auto) 0.2 Baso # (Auto) 0.1 Absolute Nucleated RBC 0.00 Nucleated RBC % 0.0 Sodium 139 Potassium 4.1 Chloride 106 Carbon Dioxide 24 Anion Gap 9.0 BUN 19 Creatinine 0.8 Estimated GFR (MDRD) 80 L Glucose 98 Calcium 9.3 Total Bilirubin 0.8 AST 12 ALT 12 Alkaline Phosphatase 47 Troponin I High Sens < 2.3 L Total Protein 6.9 Albumin 4.0 Globulin 2.9 Albumin/Globulin Ratio 1.4 Lipase 35 Urine Color Urine Clarity Urine pH Ur Specific [place] Urine Protein Urine Glucose (UA) Urine Ketones Urine Occult Blood Urine Nitrite Urine Bilirubin Urine Urobilinogen Ur Leukocyte Esterase Urine RBC Urine WBC Ur Squamous Epith Cells Urine Bacteria Ur Microscopic Review Urine Culture Comments Group A Strep Rapid 09/25/20 09/25/20 15:10 15:10 WBC RBC Hgb Hct MCV MCH MCHC RDW Plt Count MPV Neut # (Auto) Lymph # (Auto) [place] # (Auto) Eos # (Auto) Baso # (Auto) Absolute Nucleated RBC Nucleated RBC % Sodium Potassium Chloride Carbon Dioxide Anion Gap BUN Creatinine Estimated GFR (MDRD) Glucose Calcium Total Bilirubin AST ALT Alkaline Phosphatase Troponin I High Sens Total Protein Albumin Globulin Albumin/Globulin Ratio Lipase Urine Color YELLOW Urine Clarity CLEAR Urine pH 6.0 Ur Specific [place] 1.025 Urine Protein NEGATIVE Urine Glucose (UA) NEGATIVE Urine Ketones NEGATIVE Urine Occult Blood NEGATIVE Urine Nitrite POSITIVE H Urine Bilirubin NEGATIVE Urine Urobilinogen 0.2 (NORMAL) Ur Leukocyte Esterase NEGATIVE Urine RBC None Seen Urine WBC 0-3 Ur Squamous Epith Cells NONE SEEN Urine Bacteria Many H Ur Microscopic Review INDICATED Urine Culture Comments INDICATED Group A Strep Rapid Negative - Rads (name of study) cxr Radiology: Prelim report reviewed, EMP read contemporaneously, See rad report (no acute abnormality) PD MEDICAL DECISION MAKING - ED course Complexity details: reviewed results, re-evaluated patient, considered differential, d/w patient ED course: 40-year-old female with what appears to be a viral syndrome. Covid testing was performed. Negative strep. Normal chest x-ray. Normal labs. Does appear to have a UTI and we will treat for this. We will have her follow-up with her doctor for further care. She is well-appearing, nontoxic. Afebrile. No hypoxia. No respiratory distress. Patient counseled regarding signs and symptoms for which I believe and urgent re-evaluation would be necessary. Patient with good understanding of and agreement to plan and is comfortable going home at this time This document was made in part using voice recognition software. While efforts are made to proofread this document, sound alike and grammatical errors may occur. Departure - Departure Disposition: 01 Home, Self Care Clinical Impression: Viral syndrome UTI (urinary tract infection) Qualifiers: Urinary tract infection type: acute cystitis Hematuria presence: without hematuria Qualified Code(s): N30.00 - Acute cystitis without hematuria Condition: Good Instructions: ED UTI Cystitis Female, ED Viral Syndrome Follow-Up: NILESH CLINE MD [Primary Care Provider] - Within 1 week Prescriptions: Nitrofurantoin Monohyd/M-Cryst [Macrobid 100 mg Capsule] 100 mg PO BID #10 capsule Comments: You appear to have a viral syndrome today. Your laboratory testing is normal other than a UTI. Your chest x-ray does not show any acute abnormalities. You do have a Covid test pending. You have a Covid test pending. You need to self quarantine until the result is done and negative. Do not leave your house. Do not get near anybody. The results should be done in 48 to 72 hours. We will call with a positive result, the fastest way to get a negative result for confirmation though is to go to the hospital website at [email or web address], click on the my [facility] tab and sign up for the patient portal. If any friends or family get sick and would like to have a Covid test done, but do not have signs or symptoms that would necessitate being hospitalized, we encourage testing through our coronavirus swabbing station, call [phone] to schedule an appointment.
[2020-09-25 14:53] LABS: BASOPHILS # (AUTO) 0.1 10^3/uL (0.0-0.1); BASOPHILS % (AUTO) 0.9 %; EOSINOPHILS # (AUTO) 0.2 10^3/uL (0.0-0.7); EOSINOPHILS % (AUTO) 2.2 %; HGB - HEMOGLOBIN 14.4 g/dL (12.0-16.0); LYMPHOCYTES # (AUTO) 1.9 10^3/uL (1.5-3.5); LYMPHOCYTES % (AUTO) 20.7 %; MEAN CORPUSCULAR HEMOGLOBIN 30.2 pg (27.0-31.0); MEAN CORPUSCULAR HGB CONC 32.9 g/dL (32.0-36.0); MEAN CORPUSCULAR VOLUME 91.8 fL (81.0-99.0); MEAN PLATELET VOLUME 8.6 fL (7.9-10.8); MONOCYTES # (AUTO) 0.6 10^3/uL (0.0-1.0); MONOCYTES % (AUTO) 6.8 %; NEUTROPHILS # (AUTO) 6.4 10^3/uL (1.5-6.6); NEUTROPHILS % (AUTO) 69.2 %; PLT - PLATELET COUNT 331 10^3/uL (130-450); RED BLOOD COUNT 4.77 10^6/uL (4.20-5.40); RED CELL DISTRIBUTION WIDTH 12.1 % (12.0-15.0); WHITE BLOOD COUNT 9.2 x10^3/uL (4.8-10.8)
[2020-09-25 15:06] LABS: ALBUMIN/GLOBULIN RATIO 1.4 (1.0-2.2); BILIRUBIN,TOTAL 0.8 mg/dL (0.2-1.0); CALCIUM 9.3 mg/dL (8.5-10.3); CREATININE 0.8 mg/dL (0.4-1.0); TOTAL PROTEIN 6.9 g/dL (6.7-8.2)
--- NOTE | 2020-09-25 15:19 | XRAY Report ---
PROCEDURE: Chest 2 View X-Ray INDICATIONS: Cough TECHNIQUE: 2 view(s) of the chest. COMPARISON: None. FINDINGS: Surgical changes and devices: None. Lungs and pleura: No pleural effusions or pneumothorax. Lungs are clear. Mediastinum: Mediastinal contours are normal. Heart size is normal. Bones and chest wall: No suspicious bony abnormalities. Soft tissues appear unremarkable. IMPRESSION: No acute cardiopulmonary process demonstrated radiographically. Reviewed by: Aroldo Rea MD on 09/25/2020 2:18 PM [facility] Approved by: Aroldo Rea MD on 09/25/2020 2:18 PM [facility] Station ID: [id number]
[2020-09-25 15:21] LABS: BILIRUBIN,URINE NEGATIVE (NEGATIVE); GLUCOSE, URINE (UA) NEGATIVE (NEGATIVE); KETONES,URINE (UA) NEGATIVE (NEGATIVE); LEUKOCYTE ESTERASE, URINE NEGATIVE (NEGATIVE); NITRITE,URINE POSITIVE (NEGATIVE); OCCULT BLOOD,URINE NEGATIVE (NEGATIVE); PROTEIN,URINE NEGATIVE (NEGATIVE); UROBILINOGEN,URINE 0.2 (NORMAL) E.U./dL (NORMAL)
[2020-09-25 15:28] LABS: CLARITY,URINE CLEAR (CLEAR)
[2020-09-25 15:29] LABS: RAPID STREP SCREEN Negative (Negative)
[2020-09-25 15:34] LABS: BACTERIA,URINE Many /HPF (None Seen); RBC,URINE None Seen /HPF (0-5); SQUAMOUS EPITHELIAL CELL,UR NONE SEEN (<= Few)
[2020-09-25 16:35] VITALS: BP 117/80
== END 2020-09-25 16:36 | disposition home or self-care (01) ==
LOC: ED 12:51
DX: B34.9 Viral infection, unspecified (principal); R07.9 Chest pain, unspecified; N30.00 Acute cystitis without hematuria; Z20.828 Contact with and (suspected) exposure to other viral communicable diseases; F17.200 Nicotine dependence, unspecified, uncomplicated
CPT/HCPCS: 36415; 80053; 81001; 81003; 83690; 84484; 85025; 87070; 87086; 87181; 87430; 93005; 99284

== ENCOUNTER 2021-01-20 10:33 | Emergency (ER) | payer OTHER ==
--- NOTE | 2021-01-20 11:17 | XRAY Report ---
PROCEDURE: Toe(s) LT INDICATIONS: great toe twisted pain TECHNIQUE: 3 views of the first toe(s) acquired. COMPARISON: None FINDINGS: Bones: No fractures or dislocations. No suspicious bony lesions. A mild hallux valgus deformity is seen, with associated degenerative change of the first metatarsophalangeal joint. Soft tissues: No suspicious soft tissue densities. IMPRESSION: No displaced fractures can be seen by plain film. If there is focal tenderness (or other strong clinical concern for a fracture that is not seen on thi s plain film study) then please consider a dedicated CT for further evaluation. Reviewed by: Luis Sewell MD on 01/20/2021 10:16 AM STEPHY Approved by: Luis Sewell MD on 01/20/2021 10:16 AM STEPHY Station ID: [id number]
--- NOTE | 2021-01-20 11:34 | ED Physician Documentation ---
PD HPI LOWER EXT INJURY - Stated complaint Stated Complaint: LT FOOT PX - Chief complaint Chief Complaint: Trauma Ext - History obtained from History obtained from: Patient, Family - History of Present Illness PD HPI LOW EXT INJURY LOCATION: Left, Toe (great toe) Type of injury: Fall, Twist Where injury occurred: Home Timing - onset: Today Timing - duration: Minutes Timing - details: Abrupt onset, Still present Improved by: Rest, Immobilization Worsened by: Moving, Palpating Associated symptoms: Swelling, Discolored. No: Weakness, Numbness, Tingling Contributing factors: No: Anticoagulated Similar symptoms before: Has not had sx before Recently seen: Not recently seen - Additional information Additional information: 40-year-old female was walking through a baby gate and she caught her toe under the gait continued on forward with her momentum her toe was caught and hyperextended when she fell forward. She complains of pain between the great toe and the second toe on the left foot and pain over the dorsum of the distal foot over #1 and 2. She is able to bear weight on the foot as long as she is walking on her heel. Review of Systems Constitutional: denies: Fever Respiratory: denies: Cough GI: denies: Vomiting, Diarrhea Musculoskeletal: reports: Extremity pain, Pain with weight bearing. 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, 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, Hysterectomy - Present Medications Home Medications: Ambulatory Orders Medication Instructions Recorded Confirmed Topiramate 25 mg ORAL BID 12/04/16 01/20/21 Nitrofurantoin Monohyd/M-Cryst 100 mg PO BID #10 capsule 09/25/20 01/20/21 [Macrobid 100 mg Capsule] - Allergies Allergies/Adverse Reactions: Allergies Allergy/AdvReac Type Severity Reaction Status Date / Time Penicillins Allergy Hives Verified 01/20/21 10:41 - Social History Does the pt smoke?: No Smoking Status: Never smoker Does the pt drink ETOH?: Yes Does the pt have substance abuse?: Yes Substance Use and Type: Marijuana - Immunizations Immunizations are current?: Yes - POLST Patient has POLST: No PD ED PE NORMAL - Vitals Vital signs reviewed: Yes (Hypertensive and tachycardic) - General General: Alert and oriented X 3, No acute distress, Well developed/nourished - HEENT HEENT: Atraumatic, PERRL, EOMI - Neck Neck: Supple, no meningeal sign - Respiratory Respiratory: No respiratory distress - Derm Derm: Normal color, Warm and dry, No rash - Extremities Extremities: Other (There is point tenderness to the dorsum of the left foot at the distal first and second metatarsal and over the great toe itself. She is able to flex and extend there is no crepitance and no significant swelling. Distal neurovascular components are intact.) - Neuro Neuro: Alert and oriented X 3, loan teller 2-12 intact, No motor deficit, No sensory deficit, Normal speech Eye Opening: Spontaneous Motor: Obeys Commands Verbal: Oriented GCS Score: 15 - Psych Psych: Normal mood, Normal affect Results - Vitals Vitals: Vital Signs - 24 hr 01/20/21 01/20/21 10:38 10:52 Temperature 36.4 C L Heart Rate 104 H 87 Respiratory 16 16 Rate Blood Pressure 127/101 H 109/86 H O2 Saturation 100 100 Oxygen O2 Source Room air - Rads (name of study) Left toes Radiology: Prelim report reviewed (Impression: No displaced fractures can be seen by plain film), EMP read indepedently, See rad report PD MEDICAL DECISION MAKING - ED course Complexity details: considered differential, d/w patient ED course: 40-year-old female has twisted her left great toe and she has some pain distally she is placed into a walking boot for assistance with walking Departure - Departure Disposition: 01 Home, Self Care Clinical Impression: Sprain of toe, great, left Qualifiers: Encounter type: initial encounter Qualified Code(s): S93.502A - Unspecified sprain of left great toe, initial encounter Condition: Stable Instructions: ED Sprain Toe Follow-Up: NILESH CLINE MD [Primary Care Provider] -
[2021-01-20 11:42] VITALS: BP 110/82
== END 2021-01-20 11:44 | disposition home or self-care (01) ==
LOC: ED 10:33
DX: S93.502A Unspecified sprain of left great toe, initial encounter (principal); W22.09XA Striking against other stationary object, initial encounter; X50.1XXA Overexertion from prolonged static or awkward postures, initial encounter; Y93.01 Activity, walking, marching and hiking; Y92.009 Unspecified place in unspecified non-institutional (private) residence as the place of occurrence of the external cause
CPT/HCPCS: 99282; 99283

== ENCOUNTER 2021-10-01 10:33 | Day surgery (SDC) | payer OTHER ==
[2021-10-01] MEDS ORDERED: LACTATED RINGERS 1,000 ML IV ONE ×2 (10:39→13:26)
[2021-10-01] MEDS ORDERED: LIDOCAINE MPF 2%-EPI 1:200000 20 ML VIAL ONE (10:45)
[2021-10-01] MEDS ORDERED: NALOXONE 0.4 MG/ML VIAL IVP PRN (11:25)
[2021-10-01] MEDS ORDERED: ePHEDrine 50 MG/ML VIAL IVP PRN (11:25)
[2021-10-01] MEDS ORDERED: HYDROmorphone 0.5 MG/0.5 ML SYRINGE IVP PRN (11:25)
[2021-10-01] MEDS ORDERED: ONDANSETRON 4 MG/2 ML VIAL IVP PRN ×2 (11:25→13:25)
[2021-10-01] MEDS ORDERED: MORPHINE 2 MG/ML CARPUJECT IVP PRN (11:25)
[2021-10-01] MEDS ORDERED: fentaNYL 100 MCG/2 ML VIAL IVP PRN (11:25)
[2021-10-01] MEDS ORDERED: ATROPINE ABBOJECT 1 MG/10 ML SYRINGE IVP PRN (11:25)
[2021-10-01] MEDS ORDERED: METOCLOPRAMIDE 10 MG/2 ML VIAL IVP PRN (11:25)
--- NOTE | 2021-10-01 11:25 | ANESTHESIA ---
Pre-Anesthesia VS, & Labs - Diagnosis biliary dyskenesia - Procedure lap cholecystectomy Vital Signs: Temp Pulse Resp BP Pulse Ox 37.2 C 73 16 133/82 H 100 10/01/21 10:56 10/01/21 10:56 10/01/21 10:56 10/01/21 10:56 10/01/21 10:56 Height: 5 ft 6 in Weight (kg): 74.5 kg Body Mass Index: 26.5 BMI Classification: Overweight - NPO >8 hours - Is Patient ?: No - Lab Results Lab results reviewed: Yes Home Medications and Allergies Home Medications: Ambulatory Orders Methylphenidate HCl [Ritalin] 4 tab PO DAILY 09/28/21 Onabotulinumtoxina [Botox] 09/28/21 Topiramate 25 mg ORAL BID 12/04/16 Methylphenidate HCl [Ritalin] 4 tab PO DAILY 09/28/21 Onabotulinumtoxina [Botox] 09/28/21 Allergies/Adverse Reactions: Allergies Allergy/AdvReac Type Severity Reaction Status Date / Time Penicillins Allergy Hives Verified 01/20/21 10:41 Anes History & Medical History - Anesthetic History Anesthesia Complications: reports: Post-Operative Nausea/Vomiting Family history of Anesthesia Complications: Denies Family history of Malignant Hyperthermia: Denies - Medical History Cardiovascular: reports: None Pulmonary: reports: Asthma Gastrointestinal: reports: GERD Urinary: reports: Other Neuro: reports: Migraines, Motion sickness Musculoskeletal: reports: Fibromyalgia Endocrine/Autoimmune: reports: Other Blood Disorders: reports: None Skin: reports: Eczema, Psoriasis Smoking Status: Never smoker - Surgical History General: reports: Other Gynecologic: reports: section, 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, 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, Hysterectomy Exam General: Alert, Oriented x3, Cooperative, No acute distress Dental: WNL Mouth Openin Fingerbreadth Neck Mobility: Normal Mallampati classification: II Respiratory: Lungs clear, Normal breath sounds, No respiratory distress, No accessory muscle use Cardiovascular: Regular rate, Normal S1, Normal S2, No murmurs Plan Anesthesia Type: General, Total IV Consent for Procedure(s) Verified and Reviewed: Yes Code Status: Attempt Resuscitation ASA classification: 2-Mild systemic disease Is this case an emergency?: No
[2021-10-01] MEDS ORDERED: SCOPOLAMINE PATCH TOP ONE (11:30)
[2021-10-01] MEDS ORDERED: MIDAZOLAM 2 MG/2 ML VIAL ONE (11:33)
[2021-10-01] MEDS ORDERED: ROCURONIUM 50 MG/5 ML VIAL ONE (11:34)
[2021-10-01] MEDS ORDERED: fentaNYL 100 MCG/2 ML VIAL ONE ×2 (11:34→12:28)
[2021-10-01] MEDS ORDERED: PROPOFOL 200 MG/20 ML VIAL IVP ONE (11:36)
[2021-10-01] MEDS ORDERED: LIDOCAINE-MPF 2% 5 ML VIAL ONE (11:36)
[2021-10-01] MEDS ORDERED: IOTHALAMATE MEGLUMINE 50 ML VIAL ONE (11:38)
[2021-10-01] MEDS ORDERED: BUPIVACAINE 0.5% PF 10 ML VIAL ONE (11:38)
[2021-10-01] MEDS ORDERED: SCOPOLAMINE PATCH TOP SCH (12:00)
[2021-10-01] MEDS ORDERED: LACTATED RINGERS 1,000 ML IV SCH (12:00)
[2021-10-01] MEDS ORDERED: DEXAMETHASONE 4 MG/ML VIAL ONE (12:14)
[2021-10-01] MEDS ORDERED: ceFAZolin 1 GM VIAL ONE (12:21)
[2021-10-01] MEDS ORDERED: BUPIVACAINE 0.5% PF 30 ML VIAL SUBQ ONE (12:30)
[2021-10-01] MEDS ORDERED: LIDOCAINE MPF 2%-EPI 1:200000 20 ML VIAL SUBQ ONE (12:30)
[2021-10-01] MEDS ORDERED: NEOSTIGMINE 1 MG/1 ML 10 ML MDV ONE (13:01)
[2021-10-01] MEDS ORDERED: GLYCOPYRROLATE 1 MG/5 ML VIAL ONE (13:01)
[2021-10-01] MEDS ORDERED: ACETAMINOPHEN 1,000 MG/100 ML 100 ML IV ONE (13:15)
--- NOTE | 2021-10-01 13:23 | OPERATIVE REPORT ---
Operative Report - General Procedure Date: 10/01/21 Planned Procedure: Lap nuha with intraoperative cholangiogram Pre-Op Diagnosis: Chronic cholecystitis and biliary dyskinesia Procedure Performed: Laparoscopic cholecystectomy with cholangiogram Post Op Diagnosis: Prominent cholecystitis and biliary dyskinesia - Procedure Note Primary Surgeon: Mita Anesthesia Provider: RUBIO Young Pathology: Gall bladder to pathology in formalin Estimated Blood Loss (mL): 20 Findings: Grossly normal appearing gall bladder No obstruction in cystic or common ducts. Not able to visualize the intrahepatic biliary radicals Complications: None apparent - Other Other Information/Narrative: After obtaining informed consent the patient is brought to the operating room and placed in the supine position on the operating table. Following successful induction of general endotracheal anesthesia, appropriate padding of all bony prominences, and placement of appropriate monitors, the abdomen was prepped and draped in the standard surgical fashion. A timeout was held per scope protocol. All elements of the surgical safety checklist were followed before, during, and after the procedure. Following infiltration with local anesthetic to create a field block, an incision was created inferior to the umbilicus and carried down through the skin and subcutaneous tissue to reveal the fascia below. 2-0 Vicryl retention ochoa tures were placed on either side of the midline and the abdomen was entered under direct vision using a 15 blade scalpel. A 10 mm blunt Anderson balloon trocar was placed in the abdominal cavity and it was insufflated to 15 mmHg pressure. The patient was placed in reverse Trendelenburg position with the left side rotated toward the floor. A second trocar, 5 mm, was placed in the midepigastrium under direct vision and after anesthetization of the surrounding skin.A third trocar, also 5 mm was placed in the right upper quadrant for retraction of the gallbladder and a fourth 1 just medial to that as a working port as well. The gallbladder was examined. It was adherent to the surrounding structures including the omentum and the right colon. These structures were carefully dissected free from the surface of the gallbladder using a mixture of blunt and sharp dissection. The fundus of the gallbladder was then grasped and elevated up over the liver revealing the cholecysto hepatoduodenal ligament. The neck of the gallbladder was retracted laterally and the cystic duct and artery were carefully identified. The common duct was visualized but not skeletonized. A clip was placed distally on the cystic duct and a in opening created in the duct for placement of a Cholangiocath. The taut Cholangiocath was then introduced into the duct and the duct was flushed. No leak was identified. The camera was removed and we proceeded with a cholangiogram. 10 mm of undiluted Conray was injected into the duct with visualization of the cystic and common ducts. We were not able to visualize intrahepatic biliary radicles. We were able to clearly demonstrate free flow of dye into the duodenum. Angiocath was removed and we continued with the procedure.The cystic duct was clipped 3 times proximally and once distally and divided, the cystic artery was clipped twice proximally, once distally, and divided. The gallbladder was then liberated from its bed in the liver using cautery. It was placed in an Endo Catch bag and removed via the umbilical port with a camera in the epigastric position. The camera was replaced in the umbilical position and the abdomen was checked for hemostasis. It was irrigated with warm saline solution and aspirated free of all fluid and particulate matter. The trochars were then removed under direct vision and the abdomen desufflated. The umbilical incision was closed with interrupted Vicryl suture and Monocryl was placed in all of the skin incisions. All sponge, needle, and instrument counts were correct at the conclusion of the case. The patient was allowed awaken from anesthesia without difficulty and taken to the postanesthesia care unit in good condition.
[2021-10-01] MEDS ORDERED: ACETAMINOPHEN 325 MG TABLET PO PRN (13:25)
[2021-10-01] MEDS ORDERED: IBUPROFEN 600 MG TABLET PO PRN (13:25)
[2021-10-01] MEDS ORDERED: oxyCODONE 5 MG TABLET PO PRN (13:25)
[2021-10-01] MEDS ORDERED: HYDROmorphone 0.5 MG/0.5 ML SYRINGE ONE (13:40)
[2021-10-01] MEDS ORDERED: oxyCODONE 5 MG TABLET ONE (14:50)
--- NOTE | 2021-10-01 15:20 | ANESTHESIA POST OP EVALUATION ---
Anesthesia Post Eval - Post Anesthesia Eval Vitals: Last Vital Signs Temp 36.5 C 10/01/21 14:54 Pulse 67 10/01/21 14:54 Resp 14 10/01/21 14:54 BP 132/84 H 10/01/21 14:54 Pulse Ox 100 10/01/21 14:54 CV Function Including HR & BP: Stable Pain Control: Satisfactory Nausea & Vomiting: Negative Mental Status: Baseline Respiratory Status: Airway Patent Hydration Status: Satisfactory Anesthesia Complications: None
[2021-10-01 15:49] VITALS: BP 130/84
--- NOTE | 2021-10-01 15:53 | XRAY Report ---
PROCEDURE: OR C-Arm Procedure INDICATIONS: IOC TECHNIQUE: 2 intraoperative fluoroscopic images of right upper quadrant abdomen were obtained. COMPARISON: Ultrasound of abdomen dated 09/03/2018. FINDINGS: Intraoperative fluoroscopic images shows surgical clips in gallbladder fossa. There is normal contras t opacification of, bowel that. No gross intraluminal filling defect is seen. No biliary ductal dilat ation. Normal contrast opacification of visualized portion of proximal duodenum is seen. IMPRESSION: Intraoperative fluoroscopic images shows postsurgical changes from cholecystectomy. Patent common randy e duct. No gross biliary duct dilatation. Reviewed by: Freddy Carroll MD on 10/01/2021 3:52 PM PST Approved by: Freddy Carroll MD on 10/01/2021 3:52 PM PST Station ID: [id number]
== END 2021-10-01 10:34 | disposition home or self-care (01) ==
LOC: SDS 10:33
PROVIDERS: ATTEND Surgery
PROC: 0FT44ZZ Resection of Gallbladder, Percutaneous Endoscopic Approach (ICD-10-PCS; principal; 2021-10-01 11:45)
DX: K81.1 Chronic cholecystitis (principal); J45.909 Unspecified asthma, uncomplicated; Z72.0 Tobacco use
CPT/HCPCS: 47563; A9270; J0131; J1170; J3490; J7120; Q9961

== ENCOUNTER 2021-10-28 09:43 | Emergency (ER) | payer OTHER ==
--- NOTE | 2021-10-28 10:39 | ED Physician Documentation ---
History of Present Illness - Stated complaint Stated Complaint: CHEST PX/CHILLS - Chief complaint Chief Complaint: General - History obtained from History obtained from: Patient - Additonal information Additional information: The patient comes to the emergency department with chief complaint of sore throat, headache, and body aches. She states this started several days ago and that it seemed to get worse yesterday. She is also been fatigued. She states she woke up this morning and felt some pressure in her chest while laying in bed, and when she turned over, she realized she was drenched in sweat. Patient states that while she was standing up making breakfast, she just felt excessively tired, and still had a sense of the pressure coming and going. She states it is gotten a little bit better since then. No history of cardiac issues. The patient recently traveled domestically by air, and states her son has similar symptoms. She is vaccinated for COVID, but her son is not. Patient has not had any known exposures. She states she is otherwise fairly healthy. She has been working from home for the last couple of days. No cough or shortness of breath. No measured fevers. Review of Systems Ten Systems: 10 systems reviewed and negative Constitutional: reports: Myalgias, Fatigue Eyes: reports: Reviewed and negative Ears: reports: Reviewed and negative Nose: reports: Reviewed and negative Throat: reports: Reviewed and negative Cardiac: reports: Reviewed and negative Respiratory: reports: Reviewed and negative GI: reports: Reviewed and negative : reports: Reviewed and negative Skin: reports: Reviewed and negative Musculoskeletal: reports: Reviewed and negative Neurologic: reports: Headache Psychiatric: reports: Reviewed and negative Endocrine: reports: Reviewed and negative Immunocompromised: reports: Reviewed and negative PD PAST MEDICAL HISTORY - Past Medical History Past Medical History: Yes Cardiovascular: None Respiratory: Asthma Neuro: Migraines, Motion sickness Endocrine/Autoimmune: Other GI: GERD : Other HEENT: Dental implants Psych: Depression, Anxiety, ADD/ADHD Musculoskeletal: Fibromyalgia Derm: Eczema, Psoriasis - Past Surgical History Past Surgical History: No 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, 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, 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, Hysterectomy - Present Medications Home Medications: Ambulatory Orders Medication Instructions Recorded Confirmed Ondansetron Odt [Zofran Odt] 4 mg TL Q6H PRN #10 tablet 10/01/21 10/28/21 Dextroamphetamine/Amphetamine 0 mg PO DAILY 10/28/21 10/28/21 [Adderall 30 mg Tablet] Rizatriptan Benzoate [Maxalt [employer]] 10 mg PO DAILY PRN 10/28/21 10/28/21 - Allergies Allergies/Adverse Reactions: Allergies Allergy/AdvReac Type Severity Reaction Status Date / Time Penicillins Allergy Hives Verified 10/28/21 09:56 - Social History Does the pt smoke?: No Smoking Status: Never smoker Does the pt drink ETOH?: Yes Does the pt have substance abuse?: Yes Substance Use and Type: Marijuana, CBD oil / Products - Immunizations Immunizations are current?: Yes - POLST Patient has POLST: No PD ED PE NORMAL - Vitals Vital signs reviewed: Yes - General General: Alert and oriented X 3, No acute distress, Well developed/nourished - HEENT HEENT: Atraumatic, PERRL, EOMI, Moist mucous membranes - Neck Neck: Supple, no meningeal sign - Cardiac Cardiac: RRR, No murmur, Strong equal pulses - Respiratory Respiratory: No respiratory distress, Clear bilaterally - Abdomen Abdomen: Soft, Non tender, Non distended - Derm Derm: Normal color, Warm and dry, No rash - Extremities Extremities: No deformity, No edema - Neuro Neuro: Alert and oriented X 3, investor relations director 2-12 intact, Normal speech - Psych Psych: Normal mood, Normal affect Results - Vitals Vitals: Vital Signs - 24 hr 10/28/21 09:53 Temperature 36.7 C Heart Rate 88 Respiratory 16 Rate Blood Pressure 138/83 H O2 Saturation 99 Oxygen O2 Source Room air PD MEDICAL DECISION MAKING - ED course Complexity details: reviewed results, re-evaluated patient, considered differential, d/w patient ED course: The patient was worked up with EKG, which was unremarkable, and respiratory PCR, which is pending at this time. The patient was very low risk for a cardiac source of her chest pressure and fatigue, and I felt it was more likely to be due to the viral illness that the patient has. We have discussed symptomatic management at home, as well as the usual indications for return. Departure - Departure Disposition: 01 Home, Self Care Clinical Impression: Viral syndrome Condition: Stable Instructions: ED Viral Syndrome Comments: You have a COVID test pending at this time. This should be back in the next few hours. While we do call back all positive tests, we do not call with negative test results, and so the best way to get this is to go through the hospital website at [email or web address], click on the "my [facility]" tab and sign up for the patient portal. By doing this, you will be able to login and watch for your test results. Until you have a negative COVID test result, you should quarantine in your home. Your son should also quarantine with you, since he most likely has the same thing is you. Once you get your test result, if it is negative, you may continue his usual. If the test result is positive, you will need to quarantine until you test negative or until your symptoms have resolved. According to new CDC guidelines, you may return to work in 5 days. You may use ibuprofen and/or Tylenol for any aches and pains or fevers/chills that you may have. Please be sure to drink plenty of fluids. If you feel as though your symptoms are drastically worsening, please seek reevaluation.
[2021-10-28 11:07] VITALS: BP 125/89
[2021-10-28 12:28] LABS: B. PARAPERTUSSIS- RESP PCR PAN NOT DETECTED; B. PERTUSSIS- RESP PCR PANEL NOT DETECTED; C. PNEUMONIAE- RESP PCR PANEL NOT DETECTED; CORONAVIRUS 229E-RESP PCR NOT DETECTED; CORONAVIRUS HKU1-RESP PCR NOT DETECTED; CORONAVIRUS NL63-RESP PCR NOT DETECTED; CORONAVIRUS OC43-RESP PCR NOT DETECTED; HUMAN METAPNEUMOVIRUS NOT DETECTED; INFLUENZA A- RESP PCR PANEL NOT DETECTED; INFLUENZA B - RESP PCR PANEL NOT DETECTED; M. PNEUMONIAE- RESP PCR PANEL NOT DETECTED; PARAINFLUENZA VIRUS 1 NOT DETECTED; PARAINFLUENZA VIRUS 2 NOT DETECTED; PARAINFLUENZA VIRUS 3 NOT DETECTED; PARAINFLUENZA VIRUS 4 NOT DETECTED; RHINOVIRUS/ENTEROVIRUS NOT DETECTED; RSV- RESP PCR PANEL NOT DETECTED; SARS-CoV-2 -RESP PCR PANEL NOT DETECTED
== END 2021-10-28 11:07 | disposition home or self-care (01) ==
LOC: ED 09:43
DX: B34.9 Viral infection, unspecified (principal); R07.89 Other chest pain; Z20.822 Contact with and (suspected) exposure to COVID-19
CPT/HCPCS: 0202U; 93005; 99282; 99284

== ENCOUNTER 2022-03-05 13:18 | Outpatient (CLI) | payer OTHER | END 2022-03-05 13:19 | disposition critical access hospital (66) | LOC: EMS 13:18 | DX: R10.13 Epigastric pain (principal); R06.00 Dyspnea, unspecified | CPT/HCPCS: A0425; A0427 ==

== ENCOUNTER 2022-03-05 13:39 | Emergency (ER) | payer OTHER ==
[2022-03-05 13:52] VITALS: BP 137/95
--- NOTE | 2022-03-05 14:05 | ED Physician Documentation ---
PD HPI ABD PAIN - Stated complaint Stated Complaint: ABD PAIN - Chief complaint Chief Complaint: Abd Pain - History obtained from History obtained from: Patient, Family - Additional information Additional information: Had dental surgery this morning. Took a percocet and ibuprofen and took a nap. Awoke with substernal chest ppain, sharp, radiating to left. Hard to get comfortable. S/P remote cholecystectomy. Had morphine en route with improvement. 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, 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, Hysterectomy - Present Medications Home Medications: Ambulatory Orders Medication Instructions Recorded Confirmed Ondansetron Odt [Zofran Odt] 4 mg TL Q6H PRN #10 tablet 10/01/21 10/28/21 Dextroamphetamine/Amphetamine 0 mg PO DAILY 10/28/21 10/28/21 [Adderall 30 mg Tablet] Rizatriptan Benzoate [Maxalt Construction Person] 10 mg PO DAILY PRN 10/28/21 10/28/21 Cyclobenzaprine [Flexeril] 10 mg PO TID PRN #14 tablet 03/05/22 - Allergies Allergies/Adverse Reactions: Allergies Allergy/AdvReac Type Severity Reaction Status Date / Time Penicillins Allergy Hives Verified 10/28/21 09:56 - Social History Does the pt smoke?: No Smoking Status: Never smoker Does the pt drink ETOH?: Yes Does the pt have substance abuse?: Yes - Immunizations Immunizations are current?: Yes - POLST Patient has POLST: No PD ED PE NORMAL - Vitals Vital signs reviewed: Yes - General General: Alert and oriented X 3, Other (uncomfortable) - HEENT HEENT: PERRL, EOMI - Neck Neck: Supple, no meningeal sign, No bony TTP - Cardiac Cardiac: RRR, No murmur - Respiratory Respiratory: No respiratory distress, Clear bilaterally - Neuro Neuro: Alert and oriented X 3, Normal speech Results - Vitals Vitals: Vital Signs - 24 hr 03/05/22 13:45 Temperature 36.6 C Heart Rate 85 Respiratory 22 Rate Blood Pressure 137/95 H O2 Saturation 100 Oxygen O2 Source Room air - EKG (time done) 1501 Rate: Rate (enter#) (69) Rhythm: NSR [place]: Normal Intervals: Normal AR QRS: Normal Ischemia: Normal ST segments - Labs Labs: Laboratory Tests 03/05/22 03/05/22 03/05/22 14:04 14:04 14:04 WBC 8.9 RBC 5.24 Hgb 16.0 Hct 46.5 MCV 88.7 MCH 30.5 MCHC 34.4 RDW 11.3 L Plt Count 341 MPV 8.8 Neut # (Auto) 8.3 H Lymph # (Auto) 0.6 L [place] # (Auto) 0.1 Eos # (Auto) 0.0 Baso # (Auto) 0.0 Absolute Nucleated RBC 0.00 Nucleated RBC % 0.0 Sodium 138 Potassium 4.2 Chloride 105 Carbon Dioxide 21 Anion Gap 12.0 BUN 11 Creatinine 0.7 Estimated GFR (MDRD) 93 Glucose 112 H Calcium 9.6 Total Bilirubin 1.3 H AST 24 ALT 18 Alkaline Phosphatase 49 Troponin I High Sens < 2.3 L Total Protein 7.6 Albumin 4.3 Globulin 3.3 Albumin/Globulin Ratio 1.3 Lipase 35 Urine Color Urine Clarity Urine pH Ur Specific [place] Urine Protein Urine Glucose (UA) Urine Ketones Urine Occult Blood Urine Nitrite Urine Bilirubin Urine Urobilinogen Ur Leukocyte Esterase Urine RBC Urine WBC Ur Squamous Epith Cells Urine Bacteria Ur Microscopic Review Urine Culture Comments Urine HCG, Qual 03/05/22 14:10 WBC RBC Hgb Hct MCV MCH MCHC RDW Plt Count MPV Neut # (Auto) Lymph # (Auto) [place] # (Auto) Eos # (Auto) Baso # (Auto) Absolute Nucleated RBC Nucleated RBC % Sodium Potassium Chloride Carbon Dioxide Anion Gap BUN Creatinine Estimated GFR (MDRD) Glucose Calcium Total Bilirubin AST ALT Alkaline Phosphatase Troponin I High Sens Total Protein Albumin Globulin Albumin/Globulin Ratio Lipase Urine Color YELLOW Urine Clarity CLEAR Urine pH 7.0 Ur Specific [place] 1.010 Urine Protein NEGATIVE Urine Glucose (UA) NEGATIVE Urine Ketones NEGATIVE Urine Occult Blood SMALL H Urine Nitrite NEGATIVE Urine Bilirubin NEGATIVE Urine Urobilinogen 0.2 (NORMAL) Ur Leukocyte Esterase NEGATIVE Urine RBC 0-5 Urine WBC 0-3 Ur Squamous Epith Cells FEW Squamous Urine Bacteria Rare Ur Microscopic Review INDICATED Urine Culture Comments NOT INDICATED Urine HCG, Qual NEGATIVE PD MEDICAL DECISION MAKING - ED course ED course: No improvement with GI cocktail. 41-year-old woman who presents with reproducible chest wall pain after a surgical procedure this morning. She was reexamined several times and each exam had no abdominal tenderness but continued to have reproducible anterior chest wall tenderness. She is feeling better after meds here. Departure - Departure Disposition: 01 Home, Self Care Clinical Impression: Chest wall pain Condition: Good Record reviewed to determine appropriate education?: Yes Instructions: ED Contusion Chest Wall Prescriptions: Cyclobenzaprine [Flexeril] 10 mg PO TID PRN #14 tablet PRN Reason: Spasms Comments: I sent your prescription to [facility] in [place]. Return for new or worsening symptoms or if not better in the next 24 hours.
[2022-03-05] MEDS ORDERED: LIDOCAINE VISCOUS 2% 15 ML UDC MM STA (14:09)
[2022-03-05] MEDS ORDERED: MAG HYDROX/AL HYDROX/SIMETH 30 ML UDC PO STA (14:09)
[2022-03-05 14:10] LABS: BASOPHILS % (AUTO) 0.2 %; HCT - HEMATOCRIT 46.5 % (37.0-47.0); LYMPHOCYTES # (AUTO) 0.6 10^3/uL (1.5-3.5); LYMPHOCYTES % (AUTO) 6.4 %; MEAN CORPUSCULAR HEMOGLOBIN 30.5 pg (27.0-31.0); MEAN CORPUSCULAR HGB CONC 34.4 g/dL (32.0-36.0); MEAN CORPUSCULAR VOLUME 88.7 fL (81.0-99.0); MEAN PLATELET VOLUME 8.8 fL (7.9-10.8); MONOCYTES # (AUTO) 0.1 10^3/uL (0.0-1.0); MONOCYTES % (AUTO) 0.7 %; NEUTROPHILS # (AUTO) 8.3 10^3/uL (1.5-6.6); NEUTROPHILS % (AUTO) 92.4 %; PLT - PLATELET COUNT 341 10^3/uL (130-450); RED BLOOD COUNT 5.24 10^6/uL (4.20-5.40); RED CELL DISTRIBUTION WIDTH 11.3 % (12.0-15.0); WHITE BLOOD COUNT 8.9 x10^3/uL (4.8-10.8)
[2022-03-05 14:20] LABS: BILIRUBIN,URINE NEGATIVE (NEGATIVE); GLUCOSE, URINE (UA) NEGATIVE (NEGATIVE); KETONES,URINE (UA) NEGATIVE (NEGATIVE); LEUKOCYTE ESTERASE, URINE NEGATIVE (NEGATIVE); NITRITE,URINE NEGATIVE (NEGATIVE); OCCULT BLOOD,URINE SMALL (NEGATIVE); PROTEIN,URINE NEGATIVE (NEGATIVE); UROBILINOGEN,URINE 0.2 (NORMAL) E.U./dL (NORMAL)
[2022-03-05 14:21] LABS: CLARITY,URINE CLEAR (CLEAR); HCG UR QUAL NEGATIVE
[2022-03-05 14:23] LABS: ALBUMIN 4.3 g/dL (3.2-5.5); ALBUMIN/GLOBULIN RATIO 1.3 (1.0-2.2); BILIRUBIN,TOTAL 1.3 mg/dL (0.2-1.0); CALCIUM 9.6 mg/dL (8.5-10.3); CREATININE 0.7 mg/dL (0.4-1.0); POTASSIUM 4.2 mmol/L (3.5-5.0); TOTAL PROTEIN 7.6 g/dL (6.7-8.2)
[2022-03-05 14:28] LABS: BACTERIA,URINE Rare /HPF (None Seen); RBC,URINE 0-5 /HPF (0-5); SQUAMOUS EPITHELIAL CELL,UR FEW Squamous (<= Few); WBC,URINE 0-3 /HPF (0-5)
[2022-03-05] MEDS ORDERED: HYDROmorphone 1 MG/ML CARPUJECT IVP STA (14:42)
[2022-03-05] MEDS ORDERED: ONDANSETRON 4 MG/2 ML VIAL IVP STA (15:12)
[2022-03-05] MEDS ORDERED: CYCLOBENZAPRINE 10 MG TABLET PO STA (15:52)
== END 2022-03-05 16:42 | disposition home or self-care (01) ==
LOC: EDUNIT# → ED 13:39
DX: R07.89 Other chest pain (principal)
CPT/HCPCS: 36415; 80053; 81001; 81025; 83690; 84484; 85025; 93005; 96374; 96375; 99282; 99284; A9270; J1170; 81003; 87086

== ENCOUNTER 2023-11-21 08:31 | Emergency (ER) | payer OTHER ==
--- NOTE | 2023-11-21 09:22 | ED Physician Documentation ---
History of Present Illness - Stated complaint Stated Complaint: NEVES,N/V,BODY ACHES - Chief complaint Chief Complaint: General - History obtained from History obtained from: Patient - Additonal information Additional information: Patient is a 43-year-old female with a history of migraines presenting for evaluation of a migraine headache that started last night around 9 PM. She states that it is on the left side of her head and feels like her usual migraines. She did take Maxalt last night. She also has developed nausea and vomiting, body aches and feels chills.She reports being exposed to others who have been sick with flu, strep and pinkeye. She does report having congestion and a sore throat. No chest pain. Generalized abdominal pain. Headache along with nausea and vomiting have continued this morning and she has tried 2 additional doses of Maxalt without improvement.She has had a prior hysterectomy thus expresses no concern for .No dysuria. Review of Systems Constitutional: reports: Chills Nose: reports: Congestion Cardiac: denies: Chest pain / pressure GI: reports: Abdominal Pain, Nausea, Vomiting. 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, 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, Hysterectomy - Present Medications Home Medications: Ambulatory Orders Medication Instructions Recorded Confirmed Ondansetron Odt [Zofran Odt] 4 mg TL Q6H PRN #10 tablet 10/01/21 10/28/21 Dextroamphetamine/Amphetamine 0 mg PO DAILY 10/28/21 10/28/21 [Adderall 30 mg Tablet] Rizatriptan Benzoate [Maxalt [employer]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] 10 mg PO DAILY PRN 10/28/21 10/28/21 Ondansetron Odt [Zofran] 4 mg TL Q6H PRN #10 tablet 11/21/23 - Allergies Allergies/Adverse Reactions: Allergies Allergy/AdvReac Type Severity Reaction Status Date / Time Penicillins Allergy Hives Verified 11/21/23 08:48 - Social History Does the pt smoke?: No Smoking Status: Never smoker Does the pt drink ETOH?: Yes Does the pt have substance abuse?: Yes - Immunizations Immunizations are current?: Yes - POLST Patient has POLST: No PD ED PE NORMAL - General General: Alert and oriented X 3, No acute distress, Well developed/nourished - HEENT HEENT: Atraumatic, PERRL, EOMI, Moist mucous membranes, Pharynx benign, Other (Mild conjunctival injection on the right eye, no drainage, no periorbital swelling or erythema) - Neck Neck: Supple, no meningeal sign - Cardiac Cardiac: RRR, Strong equal pulses - Respiratory Respiratory: No respiratory distress, Clear bilaterally - Abdomen Abdomen: Normal bowel sounds, Soft, Non tender, Non distended - Derm Derm: Warm and dry - Neuro Neuro: Alert and oriented X 3, 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 Relevant findings are: Rate 119, sinus tachycardia, no STEMI - Labs Labs: Laboratory Tests 11/21/23 11/21/23 11/21/23 09:27 09:27 09:57 WBC 8.9 RBC 4.90 Hgb 14.6 Hct 44.6 MCV 91.0 MCH 29.8 MCHC 32.7 RDW 11.7 L Plt Count 311 MPV 8.4 Neut # (Auto) 7.4 H Lymph # (Auto) 0.4 L [place] # (Auto) 0.9 Eos # (Auto) 0.1 Baso # (Auto) 0.1 Absolute Nucleated RBC 0.00 Nucleated RBC % 0.0 Sodium 136 Potassium 4.1 Chloride 105 Carbon Dioxide 25 Anion Gap 6.0 BUN 14 Creatinine 0.8 Estimated GFR (MDRD) 79 L Glucose 97 Calcium 9.2 Total Bilirubin 0.7 AST 19 ALT 20 Alkaline Phosphatase 59 Total Protein 6.8 Albumin 4.1 Globulin 2.7 Albumin/Globulin Ratio 1.5 Lipase 14 Urine Color YELLOW Urine Clarity CLEAR Urine pH 7.0 Ur Specific [place] 1.020 Urine Protein NEGATIVE Urine Glucose (UA) NEGATIVE Urine Ketones NEGATIVE Urine Occult Blood SMALL H Urine Nitrite NEGATIVE Urine Bilirubin NEGATIVE Urine Urobilinogen 0.2 (NORMAL) Ur Leukocyte Esterase NEGATIVE Urine RBC 0-5 Urine WBC 0-3 Ur Squamous Epith Cells FEW Squamous Urine Bacteria Few Ur Microscopic Review INDICATED Urine Culture Comments NOT INDICATED Nasal Adenovirus (PCR) Nasal B. parapertussis DNA (PCR) Nasal Coronavir 229E PCR Nasal Coronavir HKU1 PCR Nasal Coronavir NL63 PCR Nasal Coronavir OC43 PCR Nasal Enterovir/Rhinovir PCR Nasal Influenza B PCR Nasal Influenza A PCR Nasal Parainfluen 1 PCR Nasal Parainfluen 2 PCR Nasal Parainfluen 3 PCR Nasal Parainfluen 4 PCR Nasal RSV (PCR) Nasal B.pertussis DNA PCR Nasal C.pneumoniae (PCR) Heriberto Human Metapneumo PCR Nasal M.pneumoniae (PCR) Nasal SARS-CoV-2 (PCR) Group A Strep Rapid 11/21/23 11/21/23 09:57 09:58 WBC RBC Hgb Hct MCV MCH MCHC RDW Plt Count MPV Neut # (Auto) Lymph # (Auto) [place] # (Auto) Eos # (Auto) Baso # (Auto) Absolute Nucleated RBC Nucleated RBC % Sodium Potassium Chloride Carbon Dioxide Anion Gap BUN Creatinine Estimated GFR (MDRD) Glucose Calcium Total Bilirubin AST ALT Alkaline Phosphatase Total Protein Albumin Globulin Albumin/Globulin Ratio Lipase Urine Color Urine Clarity Urine pH Ur Specific [place] Urine Protein Urine Glucose (UA) Urine Ketones Urine Occult Blood Urine Nitrite Urine Bilirubin Urine Urobilinogen Ur Leukocyte Esterase Urine RBC Urine WBC Ur Squamous Epith Cells Urine Bacteria Ur Microscopic Review Urine Culture Comments Nasal Adenovirus (PCR) NOT DETECTED Nasal B. parapertussis DNA (PCR) NOT DETECTED Nasal Coronavir 229E PCR NOT DETECTED Nasal Coronavir HKU1 PCR NOT DETECTED Nasal Coronavir NL63 PCR NOT DETECTED Nasal Coronavir OC43 PCR NOT DETECTED Nasal Enterovir/Rhinovir PCR NOT DETECTED Nasal Influenza B PCR NOT DETECTED Nasal Influenza A PCR NOT DETECTED Nasal Parainfluen 1 PCR NOT DETECTED Nasal Parainfluen 2 PCR NOT DETECTED Nasal Parainfluen 3 PCR NOT DETECTED Nasal Parainfluen 4 PCR NOT DETECTED Nasal RSV (PCR) NOT DETECTED Nasal B.pertussis DNA PCR NOT DETECTED Nasal C.pneumoniae (PCR) NOT DETECTED Heriberto Human Metapneumo PCR NOT DETECTED Nasal M.pneumoniae (PCR) NOT DETECTED Nasal SARS-CoV-2 (PCR) DETECTED A Group A Strep Rapid Negative PD Medical Decision Making - ED course Complexity details: reviewed results, re-evaluated patient, d/w patient ED course: Patient is a 43-year-old female with a history of migraines presenting for evaluation of migraine headache, nausea, vomiting and chills. Tachycardic. Otherwise stable vital signs. Benign abdominal exam. Labs reviewed including CBC and chemistries. Urine is negative for Infection and patient has had a hysterectomy. Abdominal exam is benign. Patient is COVID-positive. EKG is sinus rhythm. Feeling better after IV fluids, Toradol, Reglan and Benadryl for migraine. Overall well-appearing, resting comfortably with bright lights on in room. Nontoxic and nonseptic in appearance. Counseled regarding COVID diagnosis. Understands to continue with supportive care as well as concerning symptoms to return for. Understands need to quarantine per CDC guidelines. Departure - Departure Disposition: 01 Home, Self Care Clinical Impression: Migraine headache, COVID-19 Condition: Stable Instructions: ED Headache Migraine, ED Viral Syndrome Prescriptions: Ondansetron Odt [Zofran] 4 mg TL Q6H PRN #10 tablet PRN Reason: Nausea / Vomiting Comments: You have tested positive for COVID-19. Please quarantine per CDC guidelines which should be at least 5 days. I have sent a prescription for an antinausea medication to [facility] in [place]. Please make sure you continue to stay hydrated. Return to the ER with any worsening symptoms. Forms: PCP List, Activity restrictions Discharge Date/Time: 11/21/23 11:20
[2023-11-21 09:36] LABS: BASOPHILS # (AUTO) 0.1 10^3/uL (0.0-0.1); BASOPHILS % (AUTO) 0.6 %; EOSINOPHILS # (AUTO) 0.1 10^3/uL (0.0-0.7); HCT - HEMATOCRIT 44.6 % (37.0-47.0); HGB - HEMOGLOBIN 14.6 g/dL (12.0-16.0); LYMPHOCYTES # (AUTO) 0.4 10^3/uL (1.5-3.5); LYMPHOCYTES % (AUTO) 4.3 %; MEAN CORPUSCULAR HEMOGLOBIN 29.8 pg (27.0-31.0); MEAN CORPUSCULAR HGB CONC 32.7 g/dL (32.0-36.0); MEAN PLATELET VOLUME 8.4 fL (7.9-10.8); MONOCYTES # (AUTO) 0.9 10^3/uL (0.0-1.0); MONOCYTES % (AUTO) 10.4 %; NEUTROPHILS # (AUTO) 7.4 10^3/uL (1.5-6.6); NEUTROPHILS % (AUTO) 83.4 %; PLT - PLATELET COUNT 311 10^3/uL (130-450); RED CELL DISTRIBUTION WIDTH 11.7 % (12.0-15.0); WHITE BLOOD COUNT 8.9 x10^3/uL (4.8-10.8)
[2023-11-21 10:03] LABS: ALBUMIN 4.1 g/dL (3.2-5.5); ALBUMIN/GLOBULIN RATIO 1.5 (1.0-2.2); BILIRUBIN,TOTAL 0.7 mg/dL (0.2-1.0); CALCIUM 9.2 mg/dL (8.5-10.3); CREATININE 0.8 mg/dL (0.6-1.3); POTASSIUM 4.1 mmol/L (3.5-4.5); TOTAL PROTEIN 6.8 g/dL (6.4-8.9)
[2023-11-21] MEDS: METOCLOPRAMIDE 10 MG/2 ML VIAL IVP STA (10:10)
[2023-11-21] MEDS: diphenhydrAMINE INJ 50 MG/ML VIAL IVP STA (10:11)
[2023-11-21] MEDS: KETOROLAC 30 MG/ML VIAL IVP STA (10:12)
[2023-11-21] MEDS: SODIUM CHLORIDE 0.9% 1,000 ML IV STA (10:12)
[2023-11-21 10:17] LABS: BILIRUBIN,URINE NEGATIVE (NEGATIVE); CLARITY,URINE CLEAR (CLEAR); GLUCOSE, URINE (UA) NEGATIVE (NEGATIVE); KETONES,URINE (UA) NEGATIVE (NEGATIVE); LEUKOCYTE ESTERASE, URINE NEGATIVE (NEGATIVE); NITRITE,URINE NEGATIVE (NEGATIVE); OCCULT BLOOD,URINE SMALL (NEGATIVE); PROTEIN,URINE NEGATIVE (NEGATIVE); UROBILINOGEN,URINE 0.2 (NORMAL) E.U./dL (NORMAL)
[2023-11-21 10:18] LABS: RAPID STREP SCREEN Negative (Negative)
[2023-11-21 10:31] LABS: BACTERIA,URINE Few /HPF (None Seen); RBC,URINE 0-5 /HPF (0-5); SQUAMOUS EPITHELIAL CELL,UR FEW Squamous (<= Few); WBC,URINE 0-3 /HPF (0-5)
[2023-11-21 10:59] LABS: CORONAVIRUS 229E-RESP PCR NOT DETECTED; CORONAVIRUS HKU1-RESP PCR NOT DETECTED; CORONAVIRUS NL63-RESP PCR NOT DETECTED; CORONAVIRUS OC43-RESP PCR NOT DETECTED; SARS-CoV-2 -RESP PCR PANEL DETECTED
[2023-11-21 11:00] LABS: B. PARAPERTUSSIS- RESP PCR PAN NOT DETECTED; B. PERTUSSIS- RESP PCR PANEL NOT DETECTED; C. PNEUMONIAE- RESP PCR PANEL NOT DETECTED; HUMAN METAPNEUMOVIRUS NOT DETECTED; INFLUENZA A- RESP PCR PANEL NOT DETECTED; INFLUENZA B - RESP PCR PANEL NOT DETECTED; M. PNEUMONIAE- RESP PCR PANEL NOT DETECTED; PARAINFLUENZA VIRUS 1 NOT DETECTED; PARAINFLUENZA VIRUS 2 NOT DETECTED; PARAINFLUENZA VIRUS 3 NOT DETECTED; PARAINFLUENZA VIRUS 4 NOT DETECTED; RHINOVIRUS/ENTEROVIRUS NOT DETECTED; RSV- RESP PCR PANEL NOT DETECTED
[2023-11-21 11:21] VITALS: BP 119/73; O2SAT 97
== END 2023-11-21 11:20 | disposition home or self-care (01) ==
LOC: ED 08:31
DX: G43.909 Migraine, unspecified, not intractable, without status migrainosus (principal); U07.1 COVID-19
CPT/HCPCS: 36415; 80053; 81001; 83690; 85025; 87070; 87430; 87633; 93005; 96361; 96374; 96375; 99284; J1200; J2765; 81003; 87086

== ENCOUNTER 2024-01-17 07:33 | Outpatient (CLI) | payer OTHER ==
--- NOTE | 2024-01-17 19:02 | Ultrasound Report ---
PROCEDURE: Soft Tissue Head or Neck INDICATIONS: THYROID NODULE TECHNIQUE: Real-time scanning was performed of the thyroid gland, with image documentation. COMPARISON: None FINDINGS: Right: Thyroid lobe measures 5.4 x 1.7 x 2.2 cm, and is homogeneous in echotexture. Left: Thyroid lobe measures 5.6 x 1.3 x 2 cm, and is homogenous in echotexture. Isthmus: 0.2 cm thick. Nodule number: One Location: Right superior Size: Less than 1 cm. Composition: Cystic / almost completely cystic (0 points). Echogenicity: Hypoechoic (2 points). Shape: wider than tall (0 points). Margins: Smooth (0 points). Echogenic foci: None (0 points). Total points: 2 ACR TI-RADS category: TI-RADS 2: Not suspicious. Nodule number: Two Location: Right inferior Size: Less than 1 cm. Composition: Cystic / almost completely cystic (0 points). Echogenicity: Anechoic (0 points). Shape: wider than tall (0 points). Margins: Smooth (0 points). Echogenic foci: None (0 points). Total points: 0 ACR TI-RADS category: TI-RADS 1: Benign. Nodule number: Three Location: Left superior/mid Size: Less than 1 cm. Composition: Solid (2 points). Echogenicity: Hypoechoic (2 points). Shape: wider than tall (0 points). Margins: Smooth (0 points). Echogenic foci: None (0 points). Total points: 4 ACR TI-RADS category: TI-RADS 4: Moderately suspicious. IMPRESSION: Three thyroid nodules. Based on size and features, no dedicated follow-up needed. ACR TI-RADS definitions and recommendations: TI-RADS 1 (benign): 0 points. FNA not needed. TI-RADS 2 (not suspicious): 2 points. FNA not needed. TI-RADS 3 (mildly suspicious): 3 points. "FNA if 2.5 cm or larger, follow up if 1.5 cm or larger (at 1, 3, and 5 years). TI-RADS 4 (moderately suspicious): 4-6 points. "FNA if 1.5 cm or larger, follow up if 1 cm or larger (at 1, 2, 3, and 5 years). TI-RADS 5 (highly suspicious): 7 points or more. "FNA if 1 cm or larger, follow up if 0.5 cm or larger (every year for 5 years). Reviewed by: Thu Marino MD on 01/17/2024 7:00 PM PDT Approved by: Thu Marino MD on 01/17/2024 7:00 PM PDT Station ID: [id number]
== END 2024-01-17 07:34 | disposition home or self-care (01) ==
LOC: DI 07:33
PROVIDERS: ATTEND Family Medicine
DX: E04.2 Nontoxic multinodular goiter (principal)

== ENCOUNTER 2024-03-21 10:39 | Emergency (ER) | payer OTHER ==
--- NOTE | 2024-03-21 10:55 | ED Physician Documentation ---
PD HPI LOWER EXT INJURY - Stated complaint Stated Complaint: LT ANKLE SWELLING - Chief complaint Chief Complaint: Trauma Ext - History obtained from History obtained from: Patient - Additional information Additional information: About a month ago she "tweaked" her ankle on the left and has persistent pain and swelling anteromedially. 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, 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, Hysterectomy - Present Medications Home Medications: Ambulatory Orders Medication Instructions Recorded Confirmed Ondansetron Odt [Zofran Odt] 4 mg TL Q6H PRN #10 tablet 10/01/21 10/28/21 Dextroamphetamine/Amphetamine 0 mg PO DAILY 10/28/21 10/28/21 [Adderall 30 mg Tablet] Rizatriptan Benzoate [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 mg PO DAILY PRN 10/28/21 10/28/21 Ondansetron Odt [Zofran] 4 mg TL Q6H PRN #10 tablet 11/21/23 Polymyxin B/Trimeth Ophth Drop 1 drops RIGHTEYE Q3H 7 Days #1 each 11/21/23 [Polytrim Ophth Drops] - Allergies Allergies/Adverse Reactions: Allergies Allergy/AdvReac Type Severity Reaction Status Date / Time Penicillins Allergy Hives Verified 11/21/23 08:48 - Social History Does the pt smoke?: No Smoking Status: Never smoker Does the pt drink ETOH?: Yes Does the pt have substance abuse?: Yes - Immunizations Immunizations are current?: Yes - POLST Patient has POLST: No PD ED PE NORMAL - Vitals Vital signs reviewed: Yes - General General: Alert and oriented X 3, No acute distress - Extremities Extremities: Other (Tender over the medial malleolus of the left ankle and anterior joint line. No foot or proximal fibular tenderness. No deformity.) - Neuro Neuro: Alert and oriented X 3 Results - Vitals Vitals: Vital Signs - 24 hr 03/21/24 10:49 Temperature 36.4 C L Heart Rate 82 Respiratory 18 Rate Blood Pressure 150/101 H O2 Saturation 100 Oxygen O2 Source Room air - Rads (name of study) Three-view x-ray of the left ankle to me looks normal. Radiologist suggest there is a nondisplaced medial malleolar fracture Relevant Findings:: Final report received, EMP independent interpretation of test PD Medical Decision Making - ED course ED course: She is a month old ankle injury with persistent pain and swelling. The x-ray looks pretty normal to me but the radiologist felt there was a medial malleolar fracture. She was placed in a boot nonweightbearing pending orthopedic follow- up. Departure - Departure Disposition: 01 Home, Self Care Clinical Impression: Closed left ankle fracture Condition: Stable Record reviewed to determine appropriate education?: Yes Instructions: ED Fx Ankle General Follow-Up: [facility] [Provider Group] - Within 1 week Comments: The radiologist did think you have a minor fracture on the inside of your ankle. As such I would not walk or bear weight on it until you follow-up with the orthopedic office, call tomorrow for the next available follow-up appointment. Tylenol and/or ibuprofen as needed for pain. Return for new or worsening symptoms. Forms: PCP List, Activity restrictions
[2024-03-21 10:58] VITALS: BP 150/101; O2SAT 100
--- NOTE | 2024-03-21 11:32 | XRAY Report ---
PROCEDURE: Ankle 3+V LT INDICATIONS: Trauma TECHNIQUE: 3 views of the ankle were acquired. COMPARISON: None. FINDINGS: Bones: There is a potential minimally displaced medial malleolar fracture. Ankle mortise is normally aligned. No suspicious bony lesions. The talar dome demonstrates an unremarkable appearance. Inc idental note is made of an enthesophyte at the Achilles insertion. Soft tissues: Soft tissue swelling is seen, which is worst medially. IMPRESSION: Potential minimally displaced medial malleolar fracture, with overlying soft tissue swelling. Reviewed by: Luis Sewell MD on 03/21/2024 10:31 AM STEPHY Approved by: Luis Sewell MD on 03/21/2024 10:31 AM STEPHY Station ID: [id number]
== END 2024-03-21 11:55 | disposition home or self-care (01) ==
LOC: ED 10:39
DX: S82.52XA Displaced fracture of medial malleolus of left tibia, initial encounter for closed fracture (principal); X50.1XXA Overexertion from prolonged static or awkward postures, initial encounter; W01.0XXA Fall on same level from slipping, tripping and stumbling without subsequent striking against object, initial encounter
CPT/HCPCS: 99283; 99284

== ENCOUNTER 2024-03-25 11:03 | Outpatient (CLI) | payer OTHER ==
--- NOTE | 2024-03-25 20:27 | XRAY Report ---
PROCEDURE: Ankle 3+V LT INDICATIONS: LEFT ANKLE PAIN TECHNIQUE: 3 views of the ankle were acquired. COMPARISON: Left ankle radiographs 03/21/2024 FINDINGS: Bones: No acute fractures or dislocations. Ankle mortise is normally aligned. No suspicious bony l esions. Small posterior and plantar calcaneal enthesophytes. Soft tissues: Nonspecific soft tissue edema surrounding the ankle. IMPRESSION: Nonspecific soft tissue edema. No acute osseous abnormality. If there is clinical concern or persiste nt symptoms, additional imaging such as repeat radiographs or advanced imaging (e.g. CT, MRI) may be helpful for further evaluation. Reviewed by: Magnus Sotelo MD on 03/25/2024 8:25 PM PDT Approved by: Magnus Sotelo MD on 03/25/2024 8:25 PM PDT Station ID: [id number]
== END 2024-03-25 11:04 | disposition home or self-care (01) ==
LOC: DI 11:03
PROVIDERS: ATTEND Physician Assistant Surgical
DX: M25.572 Pain in left ankle and joints of left foot (principal); R60.0 Localized edema

== ENCOUNTER 2024-04-21 17:44 | Outpatient (CLI) | payer OTHER ==
--- NOTE | 2024-04-22 15:44 | XRAY Report ---
PROCEDURE: Ankle 3+V LT INDICATIONS: LEFT ANKLE PAIN TECHNIQUE: 3 views of the ankle were acquired. COMPARISON: Left ankle radiographs 03/25/2024, 03/31/2024. FINDINGS: Bones: No fractures or dislocations. No periosteal reaction. Ankle mortise is normally aligned. No suspicious bony lesions. Soft tissues: No tibiotalar joint effusion. Achilles tendon appears normal. Swelling at the lateral malleolus. IMPRESSION: Ankle swelling most pronounced at the lateral malleolus. No fracture is identified. MRI or CT could be considered for further evaluation. Reviewed by: Ar Staton MD on 04/22/2024 3:42 PM PDT Approved by: Ar Staton MD on 04/22/2024 3:42 PM PDT Station ID: [id number]
== END 2024-04-21 17:45 | disposition home or self-care (01) ==
LOC: DI 17:44
PROVIDERS: ATTEND Physician Assistant Surgical
DX: R22.42 Localized swelling, mass and lump, left lower limb (principal); M25.572 Pain in left ankle and joints of left foot